=== PATIENT | male | born 1940 | race Caucasian/White ===

== ENCOUNTER → 2017-08-11 | Outpatient (CLI) | payer MEDICARE, BC ==
--- NOTE | 2017-08-12 07:23 | US ---
EXAMINATION TYPE: US kidneys/renal and bladder DATE OF EXAM: 08/11/2017 COMPARISON: NONE CLINICAL HISTORY: N18.9 CHR RENAL DISEASE/FAILURE. EXAM MEASUREMENTS: Right Kidney: 9.3 x 4.2 x 4.2 cm Left Kidney: 10.0 x 5.6 x 4.8 cm Right Kidney: probable cyst seen measuring 0.9 x 1.0 x 0.9cm Left Kidney: No hydronephrosis or masses seen Bladder: not fully distended There is no evidence for hydronephrosis at this point in time. No nephrolithiasis is seen. Technolog ist tran 9 mm round hypoechoic anechoic lesion mid to lower pole level right kidney likely reflectin g simple cyst. The urinary bladder is somewhat poorly distended. Bilateral ureteral jets are not se en. Some cortical thinning bilaterally is present. IMPRESSION: No hydronephrosis is seen bilaterally.
== END | disposition home or self-care (01) ==
LOC: RADUSWWP 16:06
PROVIDERS: ATTEND Urology
DX: N18.9 Chronic kidney disease, unspecified (principal)
CPT/HCPCS: 76770

== ENCOUNTER → 2017-09-30 | Outpatient (CLI) | payer MEDICARE, BC | END | disposition home or self-care (01) | LOC: LABWHC1 08:55 | PROVIDERS: ATTEND Physical Medicine & Rehabilitation | DX: Z01.812 Encounter for preprocedural laboratory examination (principal); N28.9 Disorder of kidney and ureter, unspecified | CPT/HCPCS: 36415; 82565; 84520 ==

== ENCOUNTER → 2017-10-19 | Outpatient (CLI) | payer MEDICARE, BC ==
--- NOTE | 2017-10-19 16:07 | CT ---
EXAMINATION TYPE: CT lumbar spine wo con DATE OF EXAM: 10/19/2017 COMPARISON: NONE HISTORY: Low Back Pain CT DLP: 1067 mGycm Automated exposure control for dose reduction was used. An unenhanced CT of the lumbar spine was performed. Bone and soft tissue window settings are submitt ed as well as coronal and sagittal reconstructions. FINDINGS: Lumbar vertebral bodies show preserved height and alignment. There is loss of disc height L4-5 and L5 -S1 with associated spondylosis as well as vacuum disc phenomenon. Multilevel spondylosis is present. Spondylolysis. Bone mineralization is maintained. Multilevel laminectomies performed through L1-L5. There is no evident spinal stenosis. Surgical clips present in the right upper quadrant. L1-L2: Broad-based posterior disc bulge contacts the anterior thecal sac. No significant foraminal en croachment. There is some facet arthropathy with hypertrophy of ligamentum flavum encroaching on the lateral recesses. L2-L3: Posterior broad-based disc bulge contacts anterior thecal sac. Facet arthropathy with hypertro phy ligamentum flavum encroaches on the lateral recesses causing an hourglass shaped thecal sac. L3-L4: Broad-based posterior disc bulge contacts anterior thecal sac. Circumferential extension encro aches mildly into is neural foramen on the left. Facet arthropathy with fragility ligamentum flavum e ncroaches on the lateral recesses, there is an area of class configuration of the thecal sac. L4-L5: Posterior broad-based disc bulge contacts anterior thecal sac. Circumferential extension disc bulge towards the neural foramina encroaches mildly. Facet arthropathy with hypertrophy of the ligame ntum flavum encroaches on the lateral recesses, R glass configuration thecal sac is noted. L5-S1: Lateral extension endplate disc complex results in bilateral foraminal encroachment. Broad-bas ed intimal posterior disc bulge may contact the anterior thecal sac, possibly proximal left S1 nerve root. IMPRESSION: No paraspinal masses are identified. Postop changes. Multilevel facet arthropathy, foraminal encroach ment. Degenerative disc disease.
== END | disposition home or self-care (01) ==
LOC: RADCTMAIN 07:06
PROVIDERS: ATTEND Physical Medicine & Rehabilitation
DX: M51.16 Intervertebral disc disorders with radiculopathy, lumbar region (principal); M46.96 Unspecified inflammatory spondylopathy, lumbar region; M25.562 Pain in left knee; M25.552 Pain in left hip; Z79.01 Long term (current) use of anticoagulants
CPT/HCPCS: 72131

== ENCOUNTER → 2018-01-06 | Outpatient (CLI) | payer MEDICARE, BC ==
[2018-01-06 10:21] LABS: Appearance,Urine Clear (Clear); Bilirubin,Urine Negative (Negative); Blood,Urine Negative (Negative); Color,Urine Yellow; Glucose,Urine (UA) Negative (Negative); Ketones,Urine Negative (Negative); Leukocyte Esterase,Urine Negative (Negative); Nitrite,Urine Negative (Negative); Protein,Urine Negative (Negative); Specific Gravity,Urine 1.011 (1.001-1.035); Urobilinogen,Urine <2.0 mg/dL (<2.0)
[2018-01-06 10:31] LABS: HCT 38.7 % (39.0-53.0); HGB 13.4 gm/dL (13.0-17.5); MCHC 34.6 g/dL (31.0-37.0); MCV 89.7 fL (80.0-100.0); Mean Platelet Volume 6.4; Platelet Count 212 k/uL (150-450); RBC 4.32 m/uL (4.30-5.90); RDW 13.1 % (11.5-15.5); WBC 5.7 k/uL (3.8-10.6)
[2018-01-06 10:34] LABS: INR 2.4 (<1.2); Partial Thromboplastin Time 35.7 sec (22.0-30.0); Prothrombin Time 21.2 sec (9.0-12.0)
[2018-01-06 10:47] LABS: Albumin 3.8 g/dL (3.5-5.0); Calcium 8.8 mg/dL (8.4-10.2); Potassium 4.4 mmol/L (3.5-5.1); Total Bilirubin 0.6 mg/dL (0.2-1.3); Total Protein 6.8 g/dL (6.3-8.2)
== END | disposition home or self-care (01) ==
LOC: LABPAT 09:29
PROVIDERS: ATTEND Orthopaedic Surgery
DX: Z01.818 Encounter for other preprocedural examination (principal); Z01.812 Encounter for preprocedural laboratory examination
CPT/HCPCS: 36415; 80053; 81003; 85027; 85610; 85730; 86850; 86900; 86901; 87070; 93005

== ENCOUNTER 2018-01-17 06:49 | Inpatient (IN) | payer MEDICARE, BC ==
[2018-01-09 11:32] VITALS: BMI 25.8
[~2018-01-17 06:49] MED LIST: ACETAMINOPHEN TAB 500 MG TAB PO ONE; DEXAMETHASONE SOD PHOSPHATE 10 MG/ML 1 ML VIAL IV ONE; MELOXICAM 7.5 MG TAB PO ONE; MIDAZOLAM 2 MG/2 ML VIAL IV PRN; ONDANSETRON 4 MG/2 ML VIAL IVP ONE; ROPIVACAINE 246.25 MG, EPINEPHrine 0.5 MG, KETOROLAC 30 MG, cloNIDine HCL/PF 80 MCG, WA... MISCELLANE ONE; TRANEXAMIC ACID 1,000 MG in SODIUM CHLORIDE 0.9% 50 ML IVPB ONE; ceFAZolin IN SWFI 2 GM/20 ML SYRINGE IVP ONE; fentaNYL (PF) 50 MCG/ML 2 ML AMP IV PRN
[2018-01-17] MEDS ORDERED: LIDOCAINE 1% 20 ML VIAL (10MG/ML) FOR IV START INTRADERMA ONE (07:26)
[2018-01-17] MEDS: LACTATED RINGERS 1,000 ML IV SCH (07:29)
[2018-01-17 07:44] LABS: INR 1.3 (<1.2); Prothrombin Time 12.1 sec (9.0-12.0)
[2018-01-17] MEDS ORDERED: MIDAZOLAM 2 MG/2 ML VIAL ONE (09:00)
[2018-01-17] MEDS ORDERED: fentaNYL (PF) 50 MCG/ML 2 ML AMP ONE (09:00)
[2018-01-17] MEDS ORDERED: SODIUM CHLORIDE 0.9% 100 ML BAG ONE (09:00)
[2018-01-17] MEDS ORDERED: SODIUM CHLORIDE 0.9% IRRIG 1,000 ML BTL IRRIGATION ONE (09:00)
[2018-01-17] MEDS ORDERED: TRANEXAMIC ACID 1,000 MG/10 ML VIAL ONE (09:00)
[2018-01-17] MEDS ORDERED: HEPARIN SODIUM,PORCINE 10,000 UNIT/ML 1 ML VIAL ONE (09:00)
[2018-01-17] MEDS ORDERED: ePHEDrine SULFATE/0.9% NACL/PF 50 MG/5 ML SYRINGE IV ONE (09:00)
[2018-01-17] MEDS ORDERED: PROPOFOL 10 MG/ML 20 ML VIAL IV ONE (09:00)
[2018-01-17] MEDS ORDERED: diphenhydrAMINE 50 MG/ML 1 ML VIAL ONE (09:00)
[2018-01-17] MEDS ORDERED: HYDROcodone/APAP 5-325MG 1 EACH TAB PO PRN ×2 (09:04)
[2018-01-17] MEDS ORDERED: DIAZEPAM 5 MG TAB PO PRN ×2 (09:04)
[2018-01-17] MEDS ORDERED: hydrOXYzine PAMOATE 25 MG CAP PO PRN (09:04)
[2018-01-17] MEDS ORDERED: MAGNESIUM HYDROXIDE 2,400 MG/10 ML CUP PO PRN (09:04)
[2018-01-17] MEDS ORDERED: NALOXONE 0.4 MG/ML 1 ML VIAL IV PRN (09:04)
[2018-01-17] MEDS ORDERED: ONDANSETRON 4 MG/2 ML VIAL IVP PRN (09:04)
[2018-01-17] MEDS ORDERED: HYDROmorphone 1 MG/ML 1 ML SYRINGE IVP PRN ×3 (09:04)
[2018-01-17] MEDS ORDERED: ceFAZolin 3,000 MG in SODIUM CHLORIDE 0.9% IRRIGATIO 3,000 ML IRRIGATION ONE (09:44)
[2018-01-17] MEDS ORDERED: LACTATED RINGERS 1,000 ML IV ONE (10:16)
--- NOTE | 2018-01-17 10:24 | P.OP ---
Date of Procedure: 01/17/18 Preoperative Diagnosis: Severe osteoarthritis left hip Postoperative Diagnosis: Severe osteoarthritis left hip Procedure(s) Performed: Left total hip arthroplasty the direct anterior approach Implants: Onofre and nephew Polarstem size 5 standard Onofre & Nephew R3, 3 hole acetabular shell, 52 mm Onofre [employer] Nephew reflection 6.5 mm cancellus screw, 20 mm 2 Onofre [employer] Nephew R3, XLPE 20 acetabular liner Onofre & Nephew Oxinium femoral head 36 m, +8 All components were press-fit. The articulation is Oxinium on polyethylene. Anesthesia: spinal Surgeon: Kaleb Gates Gate Guard #1: Heide Schrader Estimated Blood Loss (ml): 150 (60 mL returned with Cell Saver) Pathology: other (Femoral head) Condition: stable Disposition: PACU Indications for Procedure: After failure of conservative treatment we discussed the surgical and nonsurgical treatment options at length. Patient wishes to proceed with a total hip arthroplasty with a direct anterior approach. Complications specific to this procedure were discussed at length, including but not limited to infection, leg length discrepancy, dislocation, and nerve injury. Patient is aware of all these complications and informed consent was obtained Operative Findings: The operative findings are consistent with severe osteoarthritis of the left hip Description of Procedure: Patient was seen and evaluated in the preoperative area, consent was reviewed, and the surgical site was marked with a skin marker. Patient was then brought to the operating room and given prophylactic antibiotics intravenously. 1 g of Tranexamic acid was also given. A spinal anesthetic was administered by the anesthesia department. The patient was then placed on the Gibson table with the bony prominences well-padded. The hip area was then prepped and draped in usual sterile fashion. A universal timeout was then performed, which confirmed the patient's name, surgical site, ALLERGIES, and procedure being performed. Next the incision site was located at 1 cm distal and 1 cm lateral to the anterior superior iliac spine. The skin and subcutaneous tissues were sharply incised. Incision was carefully dissected down to the fascia overlying the tensor fascia juan muscle. This fascia was then incised in line with the incision. Next, using blunt finger dissection, the tensor fascia juan muscle was dissected off its investing fascia. The muscle was then carefully retracted laterally with a cobra retractor over the lateral neck of the femur. Next, the circumflex vessels were identified and cauterized using the AquaMantis device. The anterior hip capsule was then exposed. The capsule was then opened and an inverted T fashion. Cobra retractors were then placed intracapsularly. The proximal femur was then visualized. The femoral neck was then osteotomized appropriate level above the lesser trochanter. Small amount of traction was placed with the Gibson table. A small wedge of bone was then removed from the remaining femoral head. Next, using a corkscrew femoral head was easily removed from the acetabulum. On gross visual inspection, the femoral head had complete loss of articular cartilage in multiple periarticular osteophytes. Attention was then turned to the acetabulum. the acetabulum was exposed and any remaining labrum was excised. Sequential reaming of the acetabulum was performed using fluoroscopic guidance. When the appropriate size was reached, a trial was then placed. The position and fit of the trial was checked with fluoroscopy. The trial was then removed. Then, using fluoroscopic guidance, the final implant was impacted at 20 of anteversion and 40 of abduction, and fully seated in the acetabulum. 2 screws were then placed in the acetabulum. Again fluoroscopy was used to check position of the screws. Next, the liner was then impacted, with a 20 elevated liner located in the anterior superior quadrant. Component locking was confirmed. Attention was then directed to the femur. With the aid of the Gibson table, the femur was externally rotated to approximately 130, extended, and abducted under the opposite leg. A side hook was then placed under the proximal femur, and the side hook elevator was used to elevate the proximal femur. Retractors were then placed. A capsular release was performed, as well as a release of the conjoined tendon, which afforded excellent visualization of the proximal femur. Next, a box osteotome was used to lateralize the proximal femur. A merchandising manager was then used to locate the femoral canal. Sequential broaching was then performed with appropriate size which afforded excellent fixation in the proximal femur. A trial was then placed with appropriate head and neck, and the hip was gently reduced with the aid of the Gibson table. Fluoroscopy was then used to check position of the components, as well as to ensure equal leg lengths. The hip was then gently dislocated and the trials were then removed. Final implants were then impacted and the hip was again reduced. Final fluoroscopic x-rays confirmed that the components were in anatomic position, as well as equal leg lengths. The hip was also taken through range of motion, and found to be stable. The hip was then copiously irrigated with antibiotic solution with pulsatile lavage. The hip was then irrigated with Irrisept solution. The soft tissues were then injected with a ropivacaine solution, which consisted of 246.25 mg of ropivacaine, 0.5 mg of epinephrine, 30 mg of Toradol, 80 g of clonidine, and 48.45 mL of sterile water, for a total of 100 mL of fluid injected. A second dose of 1 g of Tranexamic acid was also given. the fascia was then closed with 2-0 strata fix suture. The subcutaneous tissue was closed with 3-0 Vicryl. The subcuticular tissue was closed with 3-0 strata fix suture. The skin was then closed with Dermabond glue and a sterile silver dressing. The patient was then transferred to the recovery room in stable condition. The specimen preparation assistant GYPSY Evangelista was required due to the complexity of surgery, and the need for skilled seed analysis laboratory assistant for positioning, draping, exposure, retraction, and closure of the wound.
--- NOTE | 2018-01-17 11:33 | XR ---
EXAMINATION TYPE: XR Hip Limited LT DATE OF EXAM: 01/17/2018 COMPARISON: NONE HISTORY: Postop TECHNIQUE: One view submitted. FINDINGS: There is a prosthetic hip in near anatomic alignment. There is soft tissue edema and emphysema. IMPRESSION: 1. Postoperative change. Appears in near-anatomic alignment.
--- NOTE | 2018-01-17 12:30 | FL ---
EXAMINATION TYPE: FL guidance operating room DATE OF EXAM: 01/17/2018 HISTORY: Flouroscopy time 34 seconds of fluoroscopy provided. IMPRESSION: 1. Fluoroscopy time.
--- NOTE | 2018-01-17 14:56 | CONS ---
CONSULTATION DATE OF CONSULTATION: 01/17/2018 REASON FOR CONSULTATION: Medical management requested by Dr. Gates. CONSULTATION: A very pleasant 77-year-old patient of Dr. Rosado. Chronic stable medical conditions include hypertension, hyperlipidemia, osteoarthritis, paroxysmal atrial fibrillation. Patient has undergone a left total hip arthroplasty. Pain is controlled. No nausea, vomiting. Lying in bed. No chest pain, short of breath. Family is present including his . The patient has been in sinus rhythm. REVIEW OF SYSTEMS: CONSTITUTIONAL: None. HEENT: None. RESPIRATORY: None. CARDIOVASCULAR: None. GASTROINTESTINAL: None. GENITOURINARY: None. MUSCULOSKELETAL: Arthritic pain in joints. DERMATOLOGICAL: None. HEMATOLOGIC: None. LYMPHATICS: :None. PSYCHIATRY: None. NEUROLOGICAL: None. PAST MEDICAL HISTORY: Atrial fibrillation, hyperlipidemia, hypertension, osteoarthritis, palpitations. PAST SURGICAL HISTORY: Back surgery, cholecystectomy, hernia repair, low back surgery for blood vessel rupture, bilateral inguinal hernia repair, cardioversion. SOCIAL HISTORY: Marries, no smoking, no alcohol. FAMILY HISTORY: Father of a heart attack at age of 66. HOME MEDICATIONS: 1. Coumadin 3.75 mg on Tuesday, Tuesday, , Tuesday and 2.5 mg Tuesday, Tuesday, Tuesday. 2. Triamterene hydrochlorothiazide 1 tablet p.o. daily. 3. Lopressor 25 p.o. b.i.d. 4. Zestril 20 mg p.o. daily. 5. Neurontin 600 mg p.o. t.i.d., Multaq 400 mg p.o. b.i.d. 6. Lipitor 20 mg q.h.s. ALLERGIES: None. PHYSICAL EXAMINATION: Temperature 97.4, pulse, respiratory 18, blood pressure 107/59, pulse 94% on room air. GENERAL APPEARANCE: Average build, lying in bed, comfortable. EYES: Pupils equal, conjunctivae normal. HEENT: External appearance of nose and ears normal, oral cavity normal. NECK: JVD not raised. Mass not palpable. RESPIRATORY: Effort normal. Lungs are clear. CARDIOVASCULAR: First and second sounds normal. No edema. ABDOMEN: Soft, nontender. Liver and spleen not palpable. LYMPHATIC: No lymph of palpable in neck or axillae. PSYCHIATRY: Alert and oriented x3. Mood and affect normal. NEUROLOGICAL: Pupils equal, grossly intact. Power and sensation grossly intact. MUSCULOSKELETAL: Dressing over the left hip. INVESTIGATIONS: Blood work from 01/16/2018 shows hemoglobin of 13.4, potassium of 4.4, BUN 26, creatinine 1.52. ASSESSMENT: 1. Left total hip arthroplasty. 2. Primary osteoarthritis next is essential hypertension next hyperlipidemia next paroxysmal atrial fibrillation currently in sinus rhythm. 3. Chronic kidney disease stage 3 probably from nephrosclerosis. PLAN: Home medications to be resumed, home dose of Coumadin is to be resumed. Care was discussed with the patient's family at the bedside. Pain control is in place. Questions were answered. Patient should follow up with Dr. Rosado upon discharge. Thank you Dr. Gates. SHERRYL / GEORGEN: [id number] /
[2018-01-17] MEDS: GABAPENTIN 300 MG CAP PO SCH ×2 (15:18→22:28)
[2018-01-17] MEDS: ceFAZolin IN SWFI 2 GM/20 ML SYRINGE IVP SCH ×2 (15:19→23:55)
[2018-01-17] MEDS ORDERED: WARFARIN 5 MG TAB PO ONE (18:00)
[2018-01-17] MEDS: DRONEDARONE 400 MG TAB PO SCH (18:02)
[2018-01-17] MEDS: SODIUM CHLORIDE 0.9% 1,000 ML IV SCH (18:03)
[2018-01-17] MEDS ORDERED: SENNOSIDES-DOCUSATE SODIUM 1 EACH TAB PO SCH (21:00)
[2018-01-17] MEDS ORDERED: ATORVASTATIN 20 MG TAB PO SCH (21:00)
[2018-01-17] MEDS: METOPROLOL TARTRATE 25 MG TAB PO SCH (21:19)
[2018-01-18] MEDS: SODIUM CHLORIDE 0.9% 1,000 ML IV SCH (04:07)
[2018-01-18] MEDS: LACTATED RINGERS 1,000 ML IV SCH (06:13)
[2018-01-18 07:46] VITALS: BP 106/68; PULSE 72; RESP 12; TEMP 98.7
[2018-01-18 07:54] LABS: INR 1.5 (<1.2); Prothrombin Time 13.7 sec (9.0-12.0)
[2018-01-18 08:55] LABS: Basophils % (A) 0 %; Eosinophils % (A) 0 %; HCT 31.7 % (39.0-53.0); HGB 10.9 gm/dL (13.0-17.5); Lymphocytes # (A) 1.5 k/uL (1.0-4.8); Lymphocytes % (A) 14 %; MCH 30.7 pg (25.0-35.0); MCHC 34.4 g/dL (31.0-37.0); MCV 89.1 fL (80.0-100.0); Monocytes % (A) 9 %; Neutrophils # (A) 8.2 k/uL (1.3-7.7); Neutrophils % (A) 76 %; Platelet Count 193 k/uL (150-450); RBC 3.55 m/uL (4.30-5.90); RDW 12.9 % (11.5-15.5); WBC 10.8 k/uL (3.8-10.6)
[2018-01-18] MEDS ORDERED: LISINOPRIL 20 MG TAB PO SCH (09:00)
--- NOTE | 2018-01-18 09:13 | P.DS ---
Providers Date of admission: 01/17/18 06:49 Expected date of discharge: 01/18/18 Attending physician: Kaleb Gates Consults: 01/17/18 09:04 Consult Physician Routine Consulting Provider: Helder Douglas Consult Reason/Comments: medical management and anticoagulation Do you want consulting provider notified?: Yes Primary care physician: Kevin Rosado - Discharge Diagnosis(es) (1) Primary osteoarthritis of left hip Current Visit: Yes Status: Acute (2) Status post total hip replacement, left Current Visit: Yes Status: Acute Hospital Course: This is a 77-year-old male with known history of degenerative arthritis of the left hip. The patient presents for evaluation. After discussion and consideration patient elects to proceed with total hip arthroplasty. The patient is seen preoperatively by Dr. Gates and medically cleared for surgery by their primary care physician. Patient is admitted to [facility] on 01/17/2018 for total hip arthroplasty. The procedures performed without complication or sequelae. The patient is doing well postoperatively. Labs and vital signs are stable on day of discharge. On day of discharge patient's hip incision is healing well. There is minimal erythema. There is no drainage noted at this time. There is minimal soft tissue swelling to the hip and thigh. Patient has full foot and ankle motion without difficulty or pain. Neurovascular status to the left lower extremity is intact. Patient is discharged home in good condition. Please see med rec for accurate list of home medications. Plan - Discharge Summary Discharge Rx Participant: Yes New Discharge Prescriptions: New HYDROcodone/APAP 5-325MG [[place] 5-325] 1 - 2 tab PO Q4-6H PRN #45 tab PRN Reason: Pain Sennosides [Senokot] 1 tab PO BID #60 tablet No Action Warfarin [Coumadin] 2.5 mg PO MOWEFR Warfarin [Coumadin] 3.75 mg PO SUTUTHSA Atorvastatin [Lipitor] 20 mg PO HS Dronedarone [Multaq] 400 mg PO AC-BID #60 tab Metoprolol Tartrate [Lopressor] 25 mg PO BID #60 tab Lisinopril [Zestril] 20 mg PO DAILY Gabapentin [Neurontin] 600 mg PO TID Triamterene/Hydrochlorothiazid [Triamterene-Hctz 37.5-25 mg Tb] 1 tab PO DAILY Discharge Medication List Atorvastatin [Lipitor] 20 mg PO HS 11/14/16 [History] Warfarin [Coumadin] 2.5 mg PO MOWEFR 03/08/16 [History] Warfarin [Coumadin] 3.75 mg PO SUTUTHSA 03/08/16 [History] Dronedarone [Multaq] 400 mg PO AC-BID #60 tab 03/10/16 [Rx] Metoprolol Tartrate [Lopressor] 25 mg PO BID #60 tab 03/10/16 [Rx] Gabapentin [Neurontin] 600 mg PO TID 01/09/18 [History] Lisinopril [Zestril] 20 mg PO DAILY 01/09/18 [History] Triamterene/Hydrochlorothiazid [Triamterene-Hctz 37.5-25 mg Tb] 1 tab PO DAILY 01/09/18 [History] HYDROcodone/APAP 5-325MG [[place] 5-325] 1 - 2 tab PO Q4-6H PRN #45 tab 01/18/18 [ Rx] Sennosides [Senokot] 1 tab PO BID #60 tablet 01/18/18 [Rx] Follow up Appointment(s)/Referral(s): Kaleb Gates DO [Doctor of Osteopathic Medicine] - 2 Weeks Activity/Diet/Wound Care/Special Instructions: Weightbearing as tolerated with walker Leave dressing intact. Dressing may be removed by home care nurse in 10 days. May shower with dressing on. Follow-up with [facility] in 2 weeks, please call with any questions or concerns [phone] Discharge Disposition: HOME WITH HOME HEALTH SERVICES
[2018-01-18] MEDS: METOPROLOL TARTRATE 25 MG TAB PO SCH (10:01)
[2018-01-18] MEDS: GABAPENTIN 300 MG CAP PO SCH (10:01)
[2018-01-18] MEDS: DRONEDARONE 400 MG TAB PO SCH (10:01)
[2018-01-18] MEDS ORDERED: WARFARIN 5 MG TAB PO ONE (18:00)
--- NOTE | 2018-01-19 04:59 | PN ---
PROGRESS NOTE DATE OF SERVICE: 01/18/2018 PRESENTING COMPLAINT: Left hip surgery. INTERVAL HISTORY: Patient is status post left hip surgery. Pain is controlled. No nausea or vomiting. Did tolerate a diet. Did work with therapy. No new issues. REVIEW OF SYSTEMS: Review of systems done for constitutional, cardiovascular, GI, pulmonary, musculoskeletal; relevant findings as above. CURRENT MEDICATIONS: Current medications are reviewed. PHYSICAL EXAMINATION: On examination, temperature 98.7, pulse 72, respiratory 12, blood pressure 106/68 pulse ox 94% on room air. GENERAL APPEARANCE: Sitting up on a chair, comfortable. EYES: Pupils equal. Conjunctivae normal. HENT: External appearance of nose and ears normal. Oral cavity normal. NECK: JVD not raised. Mass not palpable. RESPIRATORY: Effort normal. Lungs are clear. CARDIOVASCULAR: First and second sounds normal. No edema. ABDOMEN: Soft, nontender. Liver and spleen not palpable. PSYCHIATRY: Alert and oriented x3. Mood and affect normal. INVESTIGATIONS: White count 10.8, hemoglobin 10.9. ASSESSMENT: 1. Left total hip arthroplasty. 2. Primary osteoarthritis. 3. Essential hypertension. 4. Hyperlipidemia. 5. Paroxysmal atrial fibrillation, currently in sinus rhythm. 6. Chronic kidney disease, stage 3, probably from nephrosclerosis. PLAN: Continue current medication and treatment plan. Patient is doing medically well. Patient to continue with Coumadin. Discussed with the to get the INR checked on next coming Tuesday. MMAMEEL / GEORGEN: [id number] /
[2018-01-19] MEDS ORDERED: WARFARIN 2.5 MG TAB PO SCH (18:00)
[2018-01-20] MEDS ORDERED: WARFARIN 2.5 MG TAB PO SCH (18:00)
== END 2018-01-18 13:32 | disposition home health service (06) | DRG 470 ==
LOC: 2ORMAIN 06:49 → 3SUR 10:38
PROVIDERS: ADMIT Orthopaedic Surgery; ATTEND Orthopaedic Surgery
PROC: 0SRB06A Replacement of Left Hip Joint with Oxidized Zirconium on Polyethylene Synthetic Substitute, Uncemented, Open Approach (ICD-10-PCS; principal; 2018-01-17 08:45)
DX: M16.12 Unilateral primary osteoarthritis, left hip (principal); E78.5 Hyperlipidemia, unspecified; I12.9 Hypertensive chronic kidney disease with stage 1 through stage 4 chronic kidney disease, or unspecified chronic kidney disease; I48.0 Paroxysmal atrial fibrillation; N18.3 Chronic kidney disease, stage 3 (moderate); Z82.49 Family history of ischemic heart disease and other diseases of the circulatory system; Z79.01 Long term (current) use of anticoagulants; Z79.899 Other long term (current) drug therapy
CPT/HCPCS: 73501; 85025; 85610; 85730; 86850; 86891; 86900; 86901; 88300

== ENCOUNTER → 2018-02-13 | Outpatient (CLI) | payer MEDICARE, BC ==
[2018-02-13 12:59] LABS: INR 3.7 (<1.2); Prothrombin Time 33.5 sec (9.0-12.0)
== END | disposition home or self-care (01) ==
LOC: LABWHC1 11:50
PROVIDERS: ATTEND Nurse Practitioner Adult Health
DX: I48.0 Paroxysmal atrial fibrillation (principal)
CPT/HCPCS: 36415; 85610

== ENCOUNTER → 2019-05-02 | Outpatient (CLI) | payer MEDICARE, BC ==
--- NOTE | 2019-05-02 16:42 | US ---
EXAMINATION TYPE: US kidneys/renal and bladder DATE OF EXAM: 05/02/2019 COMPARISON: 08/11/2017 CLINICAL HISTORY: N18.3 chronic kidney disease stage 3. abn labs EXAM MEASUREMENTS: Right Kidney: 8.6 x 4.3 x 4.2 cm Left Kidney: 10.2 x 4.4 x 6.0 cm Right Kidney: lower pole cystic appearing lesion in renal sinus = 0.8 x 0.9 x 0.8 cm This was prese nt previously and stable. Left Kidney: No hydronephrosis or masses seen Bladder: mildly distended, anechoic Bilateral Jets not seen IMPRESSION: 1. Small peripelvic cyst or renal cyst within the inferior right renal sinus.
== END | disposition home or self-care (01) ==
LOC: RADUSWWP 07:33
PROVIDERS: ATTEND Family Medicine
DX: N18.3 Chronic kidney disease, stage 3 (moderate) (principal)
CPT/HCPCS: 76770

== ENCOUNTER → 2019-05-15 | Outpatient (CLI) | payer MEDICARE, BC ==
[2019-05-15 12:21] LABS: Basophils % (A) 0 %; Eosinophils # (A) 0.1 k/uL (0-0.7); Eosinophils % (A) 2 %; HCT 39.3 % (39.0-53.0); HGB 13.2 gm/dL (13.0-17.5); Lymphocytes # (A) 1.6 k/uL (1.0-4.8); Lymphocytes % (A) 25 %; MCH 30.4 pg (25.0-35.0); MCHC 33.6 g/dL (31.0-37.0); MCV 90.5 fL (80.0-100.0); Mean Platelet Volume 6.8; Monocytes # (A) 0.5 k/uL (0-1.0); Monocytes % (A) 7 %; Neutrophils # (A) 4.2 k/uL (1.3-7.7); Neutrophils % (A) 64 %; Platelet Count 245 k/uL (150-450); RBC 4.34 m/uL (4.30-5.90); RDW 12.7 % (11.5-15.5); WBC 6.7 k/uL (3.8-10.6)
[2019-05-15 20:26] LABS: Phosphorus 3.4 mg/dL (2.4-5.1); Uric Acid 8.8 mg/dL (3.7-8.7)
[2019-05-16 17:15] LABS: African American GFR (CKD) 47.8 (60.0-200.0); Anion Gap 14.6 mmol/L (4.00-12.00); BUN/Creat Ratio 17.5 Ratio (12.00-20.00); Carbon Dioxide 20.4 mmol/L (21.6-31.8); Non-African American GFR(CKD) 41.2 (60.0-200.0); Potassium 4.4 mmol/L (3.5-5.5)
== END | disposition home or self-care (01) ==
LOC: LABWHC1 11:33
PROVIDERS: ATTEND Family Medicine
DX: N18.3 Chronic kidney disease, stage 3 (moderate) (principal)
CPT/HCPCS: 36415; 80048; 82306; 83970; 84100; 84550; 85025

== ENCOUNTER → 2019-06-08 | Outpatient (CLI) | payer MEDICARE, BC ==
[2019-06-08 13:20] LABS: Basophils % (A) 1 %; Eosinophils # (A) 0.1 k/uL (0-0.7); Eosinophils % (A) 2 %; HGB 13.1 gm/dL (13.0-17.5); Lymphocytes # (A) 1.7 k/uL (1.0-4.8); Lymphocytes % (A) 26 %; MCH 29.9 pg (25.0-35.0); MCHC 32.7 g/dL (31.0-37.0); MCV 91.6 fL (80.0-100.0); Mean Platelet Volume 7.1; Monocytes # (A) 0.5 k/uL (0-1.0); Monocytes % (A) 8 %; Neutrophils # (A) 4.1 k/uL (1.3-7.7); Neutrophils % (A) 62 %; Platelet Count 201 k/uL (150-450); RBC 4.37 m/uL (4.30-5.90); WBC 6.7 k/uL (3.8-10.6)
[2019-06-08 13:22] LABS: Appearance,Urine Clear (Clear); Bilirubin,Urine Negative (Negative); Blood,Urine Small (Negative); Color,Urine Yellow; Glucose,Urine (UA) Negative (Negative); Hyaline Casts,Urine 1 /lpf (0-2); Ketones,Urine Negative (Negative); Leukocyte Esterase,Urine Negative (Negative); Mucus,Urine Rare /hpf; Nitrite,Urine Negative (Negative); Protein,Urine Negative (Negative); RBC,Urine 10 /hpf (0-5); Specific Gravity,Urine 1.012 (1.001-1.035); Urobilinogen,Urine <2.0 mg/dL (<2.0); WBC,Urine <1 /hpf (0-5)
[2019-06-08 13:43] LABS: Protein/Creatinine Ratio,Urine 0.059
[2019-06-08 18:26] LABS: % Iron Saturation 28.29 (15.00-50.00); African American GFR (CKD) 47.5 (60.0-200.0); Albumin 4.1 g/dL (3.80-4.90); Anion Gap 4.9 mmol/L (4.00-12.00); BUN/Creat Ratio 10.63 Ratio (12.00-20.00); Calcium 8.8 mg/dL (8.7-10.3); Carbon Dioxide 30.1 mmol/L (21.6-31.8); Magnesium 1.9 mg/dL (1.5-2.4); Non-African American GFR(CKD) 40.9 (60.0-200.0); Phosphorus 3.9 mg/dL (2.4-5.1); Potassium 4.1 mmol/L (3.5-5.5); Uric Acid 7.8 mg/dL (3.7-8.7)
[2019-06-08 18:36] LABS: Ferritin 46.1 ng/mL (22.0-322.0)
[2019-06-11 12:11] LABS: Protein, Total 6.3 g/dL (6.2-8.2)
[2019-06-11 14:16] LABS: Albumin 3.7 g/dL (3.80-4.90); Gamma Globulin 0.9 g/dL (0.70-1.50)
== END | disposition home or self-care (01) ==
LOC: LABWHC1 12:53
PROVIDERS: ATTEND Internal Medicine Nephrology
DX: E55.9 Vitamin D deficiency, unspecified (principal); N25.81 Secondary hyperparathyroidism of renal origin; M10.9 Gout, unspecified; N39.0 Urinary tract infection, site not specified; D64.9 Anemia, unspecified; N18.3 Chronic kidney disease, stage 3 (moderate); R80.9 Proteinuria, unspecified
CPT/HCPCS: 36415; 80048; 81001; 82040; 82306; 82570; 82728; 83540; 83550; 83735; 83970; 84100; 84156; 84165; 84550; 85025; 86335

== ENCOUNTER → 2019-07-16 | Outpatient (CLI) | payer MEDICARE, BC ==
[2019-07-16 11:45] LABS: Appearance,Urine Clear (Clear); Bilirubin,Urine Negative (Negative); Blood,Urine Negative (Negative); Color,Urine Yellow; Glucose,Urine (UA) Negative (Negative); Ketones,Urine Negative (Negative); Leukocyte Esterase,Urine Negative (Negative); Nitrite,Urine Negative (Negative); Protein,Urine Negative (Negative); Urobilinogen,Urine <2.0 mg/dL (<2.0)
[2019-07-16 11:46] LABS: Basophils % (A) 0 %; Eosinophils # (A) 0.1 k/uL (0-0.7); Eosinophils % (A) 1 %; HCT 42.9 % (39.0-53.0); HGB 14.7 gm/dL (13.0-17.5); Lymphocytes # (A) 2.2 k/uL (1.0-4.8); Lymphocytes % (A) 24 %; MCH 30.6 pg (25.0-35.0); MCHC 34.2 g/dL (31.0-37.0); MCV 89.4 fL (80.0-100.0); Mean Platelet Volume 6.9; Monocytes # (A) 0.7 k/uL (0-1.0); Monocytes % (A) 7 %; Neutrophils % (A) 65 %; Platelet Count 249 k/uL (150-450); RDW 12.3 % (11.5-15.5); WBC 9.2 k/uL (3.8-10.6)
[2019-07-16 12:11] LABS: Protein/Creatinine Ratio,Urine 0.037
[2019-07-16 16:58] LABS: % Iron Saturation 28.57 (15.00-50.00); African American GFR (CKD) 38.6 (60.0-200.0); Albumin 4.6 g/dL (3.80-4.90); Anion Gap 10.3 mmol/L (4.00-12.00); BUN/Creat Ratio 19.47 Ratio (12.00-20.00); Calcium 9.4 mg/dL (8.7-10.3); Carbon Dioxide 25.7 mmol/L (21.6-31.8); Magnesium 2.3 mg/dL (1.5-2.4); Non-African American GFR(CKD) 33.3 (60.0-200.0); Phosphorus 3.3 mg/dL (2.4-5.1); Potassium 4.4 mmol/L (3.5-5.5); Uric Acid 10.2 mg/dL (3.7-8.7)
[2019-07-16 17:06] LABS: Ferritin 69.7 ng/mL (22.0-322.0)
== END | disposition home or self-care (01) ==
LOC: LABWHC1 11:00
PROVIDERS: ATTEND Internal Medicine Nephrology
DX: N25.81 Secondary hyperparathyroidism of renal origin (principal); M10.9 Gout, unspecified; N39.0 Urinary tract infection, site not specified; D63.1 Anemia in chronic kidney disease; N18.3 Chronic kidney disease, stage 3 (moderate)
CPT/HCPCS: 36415; 80048; 81003; 82040; 82570; 82728; 83540; 83550; 83735; 83970; 84100; 84156; 84550; 85025

== ENCOUNTER → 2019-09-07 | Outpatient (CLI) | payer MEDICARE, BC ==
[2019-09-07 12:06] LABS: Basophils % (A) 0 %; Eosinophils # (A) 0.2 k/uL (0-0.7); Eosinophils % (A) 2 %; HCT 42.4 % (39.0-53.0); HGB 13.9 gm/dL (13.0-17.5); Lymphocytes # (A) 1.7 k/uL (1.0-4.8); Lymphocytes % (A) 24 %; MCHC 32.7 g/dL (31.0-37.0); MCV 91.9 fL (80.0-100.0); Monocytes # (A) 0.6 k/uL (0-1.0); Monocytes % (A) 8 %; Neutrophils # (A) 4.6 k/uL (1.3-7.7); Neutrophils % (A) 63 %; Platelet Count 230 k/uL (150-450); RBC 4.61 m/uL (4.30-5.90); WBC 7.3 k/uL (3.8-10.6)
[2019-09-07 12:10] LABS: Appearance,Urine Clear (Clear); Bilirubin,Urine Negative (Negative); Blood,Urine Negative (Negative); Color,Urine Yellow; Glucose,Urine (UA) Negative (Negative); Ketones,Urine Negative (Negative); Leukocyte Esterase,Urine Negative (Negative); Nitrite,Urine Negative (Negative); PH, Urine 5.5 (5.0-8.0); Protein,Urine Negative (Negative); Specific Gravity,Urine 1.014 (1.001-1.035); Urobilinogen,Urine <2.0 mg/dL (<2.0)
[2019-09-07 15:57] LABS: % Iron Saturation 35.47 (15.00-50.00); African American GFR (CKD) 41.2 (60.0-200.0); Albumin 4.3 g/dL (3.80-4.90); Albumin/Globulin Ratio 1.79 (1.60-3.17); Anion Gap 9.6 mmol/L (4.00-12.00); BUN/Creat Ratio 14.44 Ratio (12.00-20.00); Calcium 9.5 mg/dL (8.7-10.3); Carbon Dioxide 28.4 mmol/L (21.6-31.8); Globulin 2.4 g/dL (1.6-3.3); Magnesium 2.2 mg/dL (1.5-2.4); Non-African American GFR(CKD) 35.5 (60.0-200.0); Phosphorus 3.3 mg/dL (2.4-5.1); Potassium 4.7 mmol/L (3.5-5.5); Total Bilirubin 0.8 mg/dL (0.3-1.2); Total Protein 6.7 g/dL (6.2-8.2); Uric Acid 7.6 mg/dL (3.7-8.7)
[2019-09-07 16:06] LABS: Ferritin 73.8 ng/mL (22.0-322.0)
== END | disposition home or self-care (01) ==
LOC: LABWHC1 10:50
PROVIDERS: ATTEND Nurse Practitioner Family
DX: N18.3 Chronic kidney disease, stage 3 (moderate) (principal); D63.1 Anemia in chronic kidney disease; N39.0 Urinary tract infection, site not specified; N25.81 Secondary hyperparathyroidism of renal origin; E55.9 Vitamin D deficiency, unspecified; M10.9 Gout, unspecified
CPT/HCPCS: 36415; 80053; 81003; 82306; 82728; 83540; 83550; 83735; 83970; 84100; 84550; 85025

== ENCOUNTER → 2020-01-15 | Outpatient (CLI) | payer MEDICARE, BC ==
[2020-01-15 20:00] LABS: African American GFR (CKD) 51.3 (60.0-200.0); Anion Gap 11.2 mmol/L (4.00-12.00); BUN/Creat Ratio 11.33 Ratio (12.00-20.00); Calcium 8.8 mg/dL (8.7-10.3); Carbon Dioxide 23.8 mmol/L (21.6-31.8); Non-African American GFR(CKD) 44.3 (60.0-200.0); Potassium 4.3 mmol/L (3.5-5.5)
== END | disposition home or self-care (01) ==
LOC: LABWHC1 09:06
PROVIDERS: ATTEND Internal Medicine Nephrology
DX: N18.3 Chronic kidney disease, stage 3 (moderate) (principal)
CPT/HCPCS: 36415; 80048

== ENCOUNTER → 2020-03-24 | Outpatient (CLI) | payer MEDICARE, BC ==
[2020-03-24 11:31] LABS: Basophils % (A) 1 %; Eosinophils # (A) 0.1 k/uL (0-0.7); Eosinophils % (A) 2 %; HGB 13.9 gm/dL (13.0-17.5); Lymphocytes # (A) 1.5 k/uL (1.0-4.8); Lymphocytes % (A) 25 %; MCH 30.5 pg (25.0-35.0); MCV 89.9 fL (80.0-100.0); Mean Platelet Volume 6.8; Monocytes # (A) 0.5 k/uL (0-1.0); Monocytes % (A) 8 %; Neutrophils # (A) 3.9 k/uL (1.3-7.7); Neutrophils % (A) 63 %; Platelet Count 199 k/uL (150-450); RBC 4.56 m/uL (4.30-5.90); RDW 12.2 % (11.5-15.5); WBC 6.2 k/uL (3.8-10.6)
[2020-03-24 11:39] LABS: Appearance,Urine Clear (Clear); Bilirubin,Urine Negative (Negative); Blood,Urine Negative (Negative); Color,Urine Yellow; Glucose,Urine (UA) Negative (Negative); Ketones,Urine Negative (Negative); Leukocyte Esterase,Urine Negative (Negative); Nitrite,Urine Negative (Negative); Protein,Urine Negative (Negative); Urobilinogen,Urine <2.0 mg/dL (<2.0)
[2020-03-24 15:52] LABS: % Iron Saturation 23.55 (15.00-50.00); African American GFR (CKD) 51.3 (60.0-200.0); Albumin 4.1 g/dL (3.80-4.90); Anion Gap 5.5 mmol/L (4.00-12.00); BUN/Creat Ratio 10.67 Ratio (12.00-20.00); Calcium 9.2 mg/dL (8.7-10.3); Carbon Dioxide 25.5 mmol/L (21.6-31.8); Magnesium 2.1 mg/dL (1.5-2.4); Non-African American GFR(CKD) 44.3 (60.0-200.0); Phosphorus 3.6 mg/dL (2.4-5.1); Potassium 4.4 mmol/L (3.5-5.5); Uric Acid 7.2 mg/dL (3.7-8.7)
[2020-03-24 16:00] LABS: Ferritin 46.6 ng/mL (22.0-322.0)
[2020-03-24 20:41] LABS: Creatinine,Urine Random 201.6 mg/dL; Total Protein,Urine Random 10.5 mg/dL (0.0-13.5)
== END | disposition home or self-care (01) ==
LOC: LABWHC1 10:45
PROVIDERS: ATTEND Internal Medicine Nephrology
DX: E55.9 Vitamin D deficiency, unspecified (principal); N18.30 Chronic kidney disease, stage 3 unspecified; N25.81 Secondary hyperparathyroidism of renal origin; M10.9 Gout, unspecified; N39.0 Urinary tract infection, site not specified; D64.1 Secondary sideroblastic anemia due to disease; R80.9 Proteinuria, unspecified
CPT/HCPCS: 36415; 80048; 81003; 82040; 82306; 82570; 82728; 83540; 83550; 83735; 83970; 84100; 84156; 84550; 85025

== ENCOUNTER → 2020-06-24 | Outpatient (CLI) | payer MEDICARE, BC ==
[2020-06-24 12:11] LABS: Appearance,Urine Clear (Clear); Basophils % (A) 1 %; Bilirubin,Urine Negative (Negative); Blood,Urine Negative (Negative); Color,Urine Yellow; Eosinophils # (A) 0.1 k/uL (0-0.7); Eosinophils % (A) 2 %; Glucose,Urine (UA) Negative (Negative); HCT 41.7 % (39.0-53.0); HGB 14.4 gm/dL (13.0-17.5); Ketones,Urine Negative (Negative); Leukocyte Esterase,Urine Negative (Negative); Lymphocytes # (A) 1.4 k/uL (1.0-4.8); Lymphocytes % (A) 24 %; MCH 31.1 pg (25.0-35.0); MCHC 34.5 g/dL (31.0-37.0); Mean Platelet Volume 6.7; Monocytes # (A) 0.4 k/uL (0-1.0); Monocytes % (A) 6 %; Neutrophils # (A) 3.8 k/uL (1.3-7.7); Neutrophils % (A) 66 %; Nitrite,Urine Negative (Negative); PH, Urine 5.5 (5.0-8.0); Platelet Count 198 k/uL (150-450); Protein,Urine Trace (Negative); RBC 4.64 m/uL (4.30-5.90); RDW 12.9 % (11.5-15.5); Specific Gravity,Urine 1.022 (1.001-1.035); Urobilinogen,Urine <2.0 mg/dL (<2.0); WBC 5.8 k/uL (3.8-10.6)
[2020-06-24 12:15] LABS: Albumin 3.8 g/dL (3.5-5.0); Magnesium 2.2 mg/dL (1.6-2.3); Phosphorus 3.5 mg/dL (2.5-4.5); Potassium 4.5 mmol/L (3.5-5.1); Uric Acid 6.7 mg/dL (3.5-8.5)
[2020-06-24 12:22] LABS: Creatinine,Urine Random 224.6 mg/dL; Protein/Creatinine Ratio,Urine 0.027
[2020-06-24 23:51] LABS: % Iron Saturation 27.44 (15.00-50.00)
== END | disposition home or self-care (01) ==
LOC: EC 10:30
PROVIDERS: ATTEND Nurse Practitioner Family
DX: N25.81 Secondary hyperparathyroidism of renal origin (principal); N39.0 Urinary tract infection, site not specified; E55.9 Vitamin D deficiency, unspecified; D64.9 Anemia, unspecified; M10.9 Gout, unspecified; R80.9 Proteinuria, unspecified
CPT/HCPCS: 36415; 80048; 81003; 82040; 82306; 82570; 82728; 83540; 83550; 83735; 83970; 84100; 84156; 84550; 85025

== ENCOUNTER → 2020-09-30 | Outpatient (CLI) | payer MEDICARE, BC ==
[2020-09-30 14:41] LABS: Creatinine,Urine Random 271.8 mg/dL; Protein/Creatinine Ratio,Urine 0.026
[2020-09-30 14:56] LABS: Appearance,Urine Clear (Clear); Bilirubin,Urine Negative (Negative); Blood,Urine Trace (Negative); Color,Urine Yellow; Glucose,Urine (UA) Negative (Negative); Ketones,Urine Negative (Negative); Leukocyte Esterase,Urine Negative (Negative); Mucus,Urine Occasional /hpf; Nitrite,Urine Negative (Negative); PH, Urine 5.5 (5.0-8.0); Protein,Urine Trace (Negative); RBC,Urine 1 /hpf (0-5); Specific Gravity,Urine 1.026 (1.001-1.035); Squamous Epithelial Cell,Urine 1 /hpf (0-4); Urobilinogen,Urine <2.0 mg/dL (<2.0); WBC,Urine 3 /hpf (0-5)
[2020-09-30 19:17] LABS: Basophils # (A) 0.02 X 10*3/uL (0.00-0.10); Basophils % (A) 0.3 %; Eosinophils # (A) 0.08 X 10*3/uL (0.04-0.35); Eosinophils % (A) 1.2 %; HCT 38.9 % (39.6-50.0); HGB 13.1 g/dL (13.0-17.0); Lymphocytes # (A) 1.55 X 10*3/uL (0.90-5.00); Lymphocytes % (A) 22.6 %; MCH 30.9 pg (27.0-32.0); MCHC 33.7 g/dL (32.0-37.0); MCV 91.7 fL (80.0-97.0); Monocytes # (A) 0.67 X 10*3/uL (0.20-1.00); Monocytes % (A) 9.8 %; Neutrophils # (A) 4.52 X 10*3/uL (1.80-7.70); Neutrophils % (A) 65.8 %; Platelet Count 216 X 10*3/uL (140-440); RBC 4.24 X 10*6/uL (4.40-5.60); WBC 6.86 X 10*3/uL (4.50-10.00)
[2020-09-30 22:54] LABS: % Iron Saturation 15.79 (15.00-50.00); African American GFR (CKD) 43.8 (60.0-200.0); Albumin 4.1 g/dL (3.80-4.90); BUN/Creat Ratio 14.71 Ratio (12.00-20.00); Calcium 9.4 mg/dL (8.7-10.3); Magnesium 1.8 mg/dL (1.5-2.4); Non-African American GFR(CKD) 37.8 (60.0-200.0); Phosphorus 3.9 mg/dL (2.4-5.1); Potassium 4.2 mmol/L (3.5-5.5); Uric Acid 7.7 mg/dL (3.7-8.7)
== END | disposition home or self-care (01) ==
LOC: LABWHC1 13:46
PROVIDERS: ATTEND Nurse Practitioner Family
DX: N39.0 Urinary tract infection, site not specified (principal); N18.32 Chronic kidney disease, stage 3b; N25.81 Secondary hyperparathyroidism of renal origin; D64.9 Anemia, unspecified; E55.9 Vitamin D deficiency, unspecified; M10.9 Gout, unspecified; R80.9 Proteinuria, unspecified
CPT/HCPCS: 36415; 80048; 81001; 82040; 82306; 82570; 82728; 83540; 83550; 83735; 83970; 84100; 84156; 84550; 85025

== ENCOUNTER → 2020-10-29 | Outpatient (CLI) | payer MEDICARE, BC ==
[2020-10-29 09:23] LABS: Appearance,Urine Clear (Clear); Bilirubin,Urine Negative (Negative); Blood,Urine Trace (Negative); Color,Urine Yellow; Glucose,Urine (UA) Negative (Negative); Hyaline Casts,Urine 1 /lpf (0-2); Ketones,Urine Negative (Negative); Leukocyte Esterase,Urine Negative (Negative); Nitrite,Urine Negative (Negative); PH, Urine 5.5 (5.0-8.0); Protein,Urine Negative (Negative); RBC,Urine 2 /hpf (0-5); Specific Gravity,Urine 1.015 (1.001-1.035); Urobilinogen,Urine <2.0 mg/dL (<2.0); WBC,Urine <1 /hpf (0-5)
[2020-10-29 09:43] LABS: Creatinine,Urine Random 135.2 mg/dL; Protein/Creatinine Ratio,Urine 0.052
[2020-10-29 12:10] LABS: Basophils # (A) 0.03 X 10*3/uL (0.00-0.10); Basophils % (A) 0.4 %; Eosinophils # (A) 0.12 X 10*3/uL (0.04-0.35); Eosinophils % (A) 1.7 %; HCT 42.9 % (39.6-50.0); Lymphocytes # (A) 1.47 X 10*3/uL (0.90-5.00); Lymphocytes % (A) 21.1 %; MCHC 32.6 g/dL (32.0-37.0); MCV 91.9 fL (80.0-97.0); Mean Platelet Volume 9.9 fL (9.5-12.2); Monocytes % (A) 7.2 %; Neutrophils # (A) 4.83 X 10*3/uL (1.80-7.70); Neutrophils % (A) 69.3 %; Platelet Count 191 X 10*3/uL (140-440); RBC 4.67 X 10*6/uL (4.40-5.60); RDW 12.6 % (11.5-14.5); WBC 6.97 X 10*3/uL (4.50-10.00)
[2020-10-29 14:26] LABS: % Iron Saturation 32.39 (15.00-50.00); African American GFR (CKD) 43.8 (60.0-200.0); Anion Gap 8.8 mmol/L (4.00-12.00); BUN/Creat Ratio 11.76 Ratio (12.00-20.00); Calcium 8.5 mg/dL (8.7-10.3); Carbon Dioxide 25.2 mmol/L (21.6-31.8); Ferritin 37.5 ng/mL (22.0-322.0); Magnesium 1.8 mg/dL (1.5-2.4); Non-African American GFR(CKD) 37.8 (60.0-200.0); Phosphorus 2.7 mg/dL (2.4-5.1); Potassium 4.1 mmol/L (3.5-5.5)
== END | disposition home or self-care (01) ==
LOC: LABWHC1 08:02
DX: N25.81 Secondary hyperparathyroidism of renal origin (principal); N18.32 Chronic kidney disease, stage 3b; M10.9 Gout, unspecified; N39.0 Urinary tract infection, site not specified; D64.9 Anemia, unspecified; R80.9 Proteinuria, unspecified
CPT/HCPCS: 36415; 80048; 81001; 82040; 82306; 82570; 82728; 83540; 83550; 83735; 83970; 84100; 84156; 84550; 85025

== ENCOUNTER → 2021-01-27 | Outpatient (CLI) | payer MEDICARE, BC ==
[2021-01-27 15:22] LABS: Appearance,Urine Clear (Clear); Bilirubin,Urine Negative (Negative); Blood,Urine Trace (Negative); Color,Urine Light Yellow; Glucose,Urine (UA) Negative (Negative); Hyaline Casts,Urine 8 /lpf (0-2); Ketones,Urine Negative (Negative); Leukocyte Esterase,Urine Negative (Negative); Nitrite,Urine Negative (Negative); Protein,Urine Negative (Negative); RBC,Urine 1 /hpf (0-5); Specific Gravity,Urine 1.009 (1.001-1.035); Urobilinogen,Urine <2.0 mg/dL (<2.0)
[2021-01-27 15:35] LABS: Protein/Creatinine Ratio,Urine 0.158
[2021-01-27 23:47] LABS: Basophils # (A) 0.04 X 10*3/uL (0.00-0.10); Basophils % (A) 0.6 %; Eosinophils # (A) 0.11 X 10*3/uL (0.04-0.35); Eosinophils % (A) 1.6 %; HCT 41.9 % (39.6-50.0); Lymphocytes # (A) 1.81 X 10*3/uL (0.90-5.00); Lymphocytes % (A) 26.7 %; MCH 30.3 pg (27.0-32.0); MCHC 33.4 g/dL (32.0-37.0); MCV 90.7 fL (80.0-97.0); Monocytes # (A) 0.59 X 10*3/uL (0.20-1.00); Monocytes % (A) 8.7 %; Neutrophils # (A) 4.22 X 10*3/uL (1.80-7.70); Neutrophils % (A) 62.1 %; Platelet Count 214 X 10*3/uL (140-440); RBC 4.62 X 10*6/uL (4.40-5.60); RDW 13.1 % (11.5-14.5); WBC 6.79 X 10*3/uL (4.50-10.00)
[2021-01-28 15:27] LABS: % Iron Saturation 21.08 (15.00-50.00); African American GFR (CKD) 50.9 (60.0-200.0); Albumin 4.1 g/dL (3.8-4.9); Anion Gap 16.4 mmol/L (4.00-12.00); BUN/Creat Ratio 12.27 Ratio (12.00-20.00); Blood Urea Nitrogen 18.4 mg/dL (9.0-27.0); Calcium 8.9 mg/dL (8.7-10.3); Carbon Dioxide 19.6 mmol/L (21.6-31.8); Ferritin 63.2 ng/mL (22.0-322.0); Phosphorus 3.3 mg/dL (2.4-5.1); Potassium 4.2 mmol/L (3.5-5.5); Uric Acid 6.6 mg/dL (3.7-8.7)
== END | disposition home or self-care (01) ==
LOC: LABWHC1 12:46
PROVIDERS: ATTEND Internal Medicine Nephrology
DX: E83.39 Other disorders of phosphorus metabolism (principal); M10.9 Gout, unspecified; N39.0 Urinary tract infection, site not specified; R80.9 Proteinuria, unspecified; D50.9 Iron deficiency anemia, unspecified
CPT/HCPCS: 36415; 80048; 81001; 82040; 82306; 82570; 82728; 83540; 83550; 83735; 83970; 84100; 84156; 84550; 85025

== ENCOUNTER → 2021-07-21 | Outpatient (CLI) | payer MEDICARE, BC ==
[2021-07-21 23:28] LABS: Appearance,Urine Clear (Clear); Bilirubin,Urine Negative (Negative); Blood,Urine Negative (Negative); Color,Urine Yellow (Yellow); Ketones,Urine Trace mg/dL (Negative); Leukocyte Esterase,Urine Negative (Negative); Nitrite,Urine Negative (Negative); Protein,Urine Trace (Negative); Specific Gravity,Urine 1.021 (1.001-1.030)
[2021-07-22 02:48] LABS: African American GFR (CKD) 46.8 (60.0-200.0); Albumin 4.1 g/dL (3.8-4.9); Albumin/Globulin Ratio 1.64 (1.60-3.17); Anion Gap 11.5 mmol/L (10.00-18.00); BUN/Creat Ratio 12.56 Ratio (12.00-20.00); Blood Urea Nitrogen 20.1 mg/dL (9.0-27.0); Calcium 8.9 mg/dL (8.7-10.3); Carbon Dioxide 23.5 mmol/L (20.0-27.5); Globulin 2.5 g/dL (1.6-3.3); Magnesium 2.7 mg/dL (1.5-2.4); Non-African American GFR(CKD) 40.4 (60.0-200.0); Phosphorus 3.9 mg/dL (2.4-5.1); Potassium 4.8 mmol/L (3.5-5.5); Total Bilirubin 0.4 mg/dL (0.30-1.20); Total Protein 6.6 g/dL (6.2-8.2); Uric Acid 6.9 mg/dL (3.7-8.7)
== END | disposition home or self-care (01) ==
LOC: LABWHC1 14:45
PROVIDERS: ATTEND Internal Medicine Nephrology
DX: N25.81 Secondary hyperparathyroidism of renal origin (principal); N39.0 Urinary tract infection, site not specified; D64.9 Anemia, unspecified; R80.9 Proteinuria, unspecified; M10.9 Gout, unspecified; N18.32 Chronic kidney disease, stage 3b
CPT/HCPCS: 36415; 80053; 81003; 82306; 83735; 83970; 84100; 84550

== ENCOUNTER → 2021-11-17 | Outpatient (CLI) | payer MEDICARE, BC ==
[2021-11-17 12:47] LABS: Creatinine,Urine Random 225.3 mg/dL; Protein/Creatinine Ratio,Urine 0.058
[2021-11-17 18:25] LABS: Appearance,Urine Clear (Clear); Bilirubin,Urine Negative (Negative); Blood,Urine Negative (Negative); Color,Urine Yellow (Yellow); Ketones,Urine Trace mg/dL (Negative); Nitrite,Urine Negative (Negative); PH, Urine 5.5 (5.0-8.0); Specific Gravity,Urine 1.025 (1.001-1.030); Urobilinogen,Urine 0.2 (0.2,1.0)
[2021-11-17 19:07] LABS: Ferritin 75.2 ng/mL (22.0-322.0)
[2021-11-17 19:19] LABS: Basophils # (A) 0.04 X 10*3/uL (0.00-0.10); Basophils % (A) 0.6 %; Eosinophils % (A) 1.6 %; HCT 41.7 % (39.6-50.0); HGB 13.9 g/dL (13.0-17.0); Immature Grans, Automated 0.6 %; Lymphocytes # (A) 1.69 X 10*3/uL (0.90-5.00); Lymphocytes % (A) 27.2 %; MCHC 33.3 g/dL (32.0-37.0); MCV 93.1 fL (80.0-97.0); Mean Platelet Volume 10.1 fL (9.5-12.2); Monocytes # (A) 0.63 X 10*3/uL (0.20-1.00); Monocytes % (A) 10.1 %; NRBC Per 100 WBC 0 /100 WBCS (0.0-0.0); Neutrophils # (A) 3.72 X 10*3/uL (1.80-7.70); Neutrophils % (A) 59.9 %; Platelet Count 183 X 10*3/uL (140-440); RBC 4.48 X 10*6/uL (4.40-5.60); RDW 13.1 % (11.5-14.5); WBC 6.22 X 10*3/uL (4.50-10.00)
[2021-11-17 19:34] LABS: African American GFR (CKD) 50.6 (60.0-200.0); Anion Gap 10.9 mmol/L (10.00-18.00); BUN/Creat Ratio 15.87 Ratio (12.00-20.00); Blood Urea Nitrogen 23.8 mg/dL (9.0-27.0); Calcium 8.7 mg/dL (8.7-10.3); Carbon Dioxide 23.1 mmol/L (20.0-27.5); Magnesium 2.1 mg/dL (1.5-2.4); Non-African American GFR(CKD) 43.7 (60.0-200.0); Phosphorus 3.2 mg/dL (2.4-5.1); Potassium 4.1 mmol/L (3.5-5.5); Uric Acid 6.7 mg/dL (3.7-8.7)
[2021-11-17 20:03] LABS: % Iron Saturation 41.07 (15.00-50.00)
== END | disposition home or self-care (01) ==
LOC: LABWHC1 10:17
PROVIDERS: ATTEND Internal Medicine Nephrology
DX: N25.81 Secondary hyperparathyroidism of renal origin (principal); N18.32 Chronic kidney disease, stage 3b; E55.9 Vitamin D deficiency, unspecified; E21.3 Hyperparathyroidism, unspecified; M10.9 Gout, unspecified; N39.0 Urinary tract infection, site not specified; D64.9 Anemia, unspecified
CPT/HCPCS: 36415; 80048; 81003; 82040; 82306; 82570; 82728; 83540; 83550; 83735; 83970; 84100; 84156; 84550; 85025

== ENCOUNTER → 2022-03-30 | Outpatient (CLI) | payer MEDICARE, BC ==
[2022-03-30 11:58] LABS: Protein/Creatinine Ratio,Urine 0.054
[2022-03-30 15:16] LABS: Albumin 4.1 g/dL (3.8-4.9); Ferritin 68.8 ng/mL (22.0-322.0)
[2022-03-30 15:21] LABS: Basophils # (A) 0.04 X 10*3/uL (0.00-0.10); Basophils % (A) 0.6 %; Eosinophils # (A) 0.11 X 10*3/uL (0.04-0.35); Eosinophils % (A) 1.7 %; HCT 43.5 % (39.6-50.0); HGB 14.8 g/dL (13.0-17.0); Immature Grans, Automated 0.3 %; Lymphocytes # (A) 1.72 X 10*3/uL (0.90-5.00); Lymphocytes % (A) 26.1 %; MCH 32.2 pg (27.0-32.0); MCV 94.6 fL (80.0-97.0); Mean Platelet Volume 9.8 fL (9.5-12.2); Monocytes # (A) 0.63 X 10*3/uL (0.20-1.00); Monocytes % (A) 9.5 %; NRBC Per 100 WBC 0 /100 WBCS (0.0-0.0); Neutrophils # (A) 4.08 X 10*3/uL (1.80-7.70); Neutrophils % (A) 61.8 %; Platelet Count 193 X 10*3/uL (140-440); RDW 12.5 % (11.5-14.5)
[2022-03-30 16:00] LABS: Appearance,Urine Clear (Clear); Bilirubin,Urine Negative (Negative); Blood,Urine Negative (Negative); Color,Urine Yellow (Yellow); Ketones,Urine Trace mg/dL (Negative); Nitrite,Urine Negative (Negative); PH, Urine 5.5 (5.0-8.0); Specific Gravity,Urine 1.021 (1.001-1.030)
[2022-03-30 18:18] LABS: % Iron Saturation 35.23 (15.00-50.00); African American GFR (CKD) 47.5 (60.0-200.0); Anion Gap 12.2 mmol/L (10.00-18.00); BUN/Creat Ratio 13.1 Ratio (12.00-20.00); Blood Urea Nitrogen 20.7 mg/dL (9.0-27.0); Calcium 9.2 mg/dL (8.7-10.3); Carbon Dioxide 24.1 mmol/L (20.0-27.5); Magnesium 2.1 mg/dL (1.5-2.4); Phosphorus 3.2 mg/dL (2.4-5.1); Potassium 4.5 mmol/L (3.5-5.5); Uric Acid 6.4 mg/dL (3.7-8.7)
== END | disposition home or self-care (01) ==
LOC: LABWHC1 10:15
PROVIDERS: ATTEND Nurse Practitioner Acute Care
DX: N25.81 Secondary hyperparathyroidism of renal origin (principal); N18.32 Chronic kidney disease, stage 3b; D63.1 Anemia in chronic kidney disease; M10.9 Gout, unspecified; N39.0 Urinary tract infection, site not specified; R80.9 Proteinuria, unspecified
CPT/HCPCS: 36415; 80048; 81003; 82040; 82306; 82570; 82728; 83540; 83550; 83735; 83970; 84100; 84156; 84550; 85025

== ENCOUNTER 2022-04-18 04:55 | Emergency (ER) | payer MEDICARE, BC ==
[2022-04-18 05:34] VITALS: RESP 16
[2022-04-18] MEDS ORDERED: IBUPROFEN 600 MG TAB PO STA (05:51)
[2022-04-18] MEDS ORDERED: IPRATROPIUM-ALBUTEROL 3 ML NEB INHALATION STA (05:51)
[2022-04-18] MEDS ORDERED: ACETAMINOPHEN TAB 500 MG TAB PO STA (05:51)
[2022-04-18] MEDS ORDERED: SODIUM CHLORIDE 0.9% 1,000 ML IV STA (05:51)
--- NOTE | 2022-04-18 05:51 | ED ---
URI HPI - General Chief Complaint: Upper Respiratory Infection Stated Complaint: Cough, chest congestion Time Seen by Provider: 04/18/22 05:03 Source: patient, RN notes reviewed, old records reviewed Mode of arrival: ambulatory Limitations: no limitations - History of Present Illness Initial Comments: This is a 81-year-old male to the emergency department for evaluation. Presents today for evaluation regards to overall recently not feeling well. Patient's chest cut over pneumonia been at the doctor's office a lot recently. His mucus and coughing ingestion and he can't clear with concern for pneumonia. Patient denying chest pain denying weakness denying any other significant complaints. Patient states he generally feels well he does have history of A. fib high blood pressure high cholesterol MD Complaint: cough, nasal congestion -: days(s) Severity: moderate Severity scale (1-10): 4 Quality: dull Consistency: intermittent Improves With: nothing Worsens With: nothing Associated Symptoms: chills, nasal congestion, sore throat, cough Treatments Prior to Arrival: none - Related Data Home Medications Medication Instructions Recorded Confirmed Atorvastatin [Lipitor] 20 mg PO HS 03/08/16 01/17/18 Warfarin [Coumadin] 2.5 mg PO MOWEFR 03/08/16 01/17/18 Warfarin [Coumadin] 3.75 mg PO SUTUTHSA 03/08/16 01/17/18 Gabapentin [Neurontin] 600 mg PO TID 01/09/18 01/17/18 Triamterene/Hydrochlorothiazid 1 tab PO DAILY 01/09/18 01/17/18 [Triamterene-Hctz 37.5-25 mg Tb] lisinopriL [Zestril] 20 mg PO DAILY 01/09/18 01/17/18 Previous Rx's Medication Instructions Recorded Dronedarone [Multaq] 400 mg PO AC-BID #60 tab 03/10/16 Metoprolol Tartrate [Lopressor] 25 mg PO BID #60 tab 03/10/16 HYDROcodone/APAP 5-325MG [[place] 1 - 2 tab PO Q4-6H PRN #45 tab 01/18/18 5-325] Sennosides [Senokot] 1 tab PO BID #60 tablet 01/18/18 Azithromycin [Zithromax] 500 mg PO DAILY 7 Days #7 tab 04/18/22 predniSONE 50 mg PO DAILY #5 tab 04/18/22 Allergies Allergy/AdvReac Type Severity Reaction Status Date / Time No Known Allergies Allergy Verified 04/18/22 05:01 Review of Systems ROS Statement: Those systems with pertinent positive or pertinent negative responses have been documented in the HPI. ROS Other: All systems not noted in ROS Statement are negative. Past Medical History Past Medical History: Atrial Fibrillation, Hyperlipidemia, Hypertension Additional Past Medical History / Comment(s): Pt states in January 2011 he had a cardioversion which was successful and to his knowledge he has not had an irregular heart beat until today. Other HX: palpitations History of Any Multi-Drug Resistant Organisms: None Reported Past Surgical History: Back Surgery, Cholecystectomy, Hernia Repair Additional Past Surgical History / Comment(s): Low back surgery for blood vessel that ruptured, bilateral inguinal hernias, 01/2011 cardioversion, colonoscopies. Past Anesthesia/Blood Transfusion Reactions: No Reported Reaction Past Psychological History: No Psychological Hx Reported Smoking Status: Never smoker Past Alcohol Use History: None Reported Past Drug Use History: None Reported - Past Family History Father Family Medical History: Myocardial Infarction ([place]) Additional Family Medical History / Comment(s): Father of a [place] at the age of 66yrs. Mother Additional Family Medical History / Comment(s): Mother of heart problems at the age of 81 yrs. General Exam Limitations: no limitations General appearance: alert, in no apparent distress Head exam: Present: atraumatic, normocephalic, normal inspection Eye exam: Present: normal appearance, PERRL, EOMI. Absent: scleral icterus, conjunctival injection, periorbital swelling ENT exam: Present: normal exam, mucous membranes moist Neck exam: Present: normal inspection. Absent: tenderness, meningismus, lymphadenopathy Respiratory exam: Present: normal lung sounds bilaterally. Absent: respiratory distress, wheezes, rales, rhonchi, stridor Cardiovascular Exam: Present: regular rate, normal rhythm, normal heart sounds. Absent: systolic murmur, diastolic murmur, rubs, gallop, clicks GI/Abdominal exam: Present: soft, normal bowel sounds. Absent: distended, tenderness, guarding, rebound, rigid Extremities exam: Present: normal inspection, full ROM, normal capillary refill. Absent: tenderness, pedal edema, joint swelling, calf tenderness Back exam: Present: normal inspection Neurological exam: Present: alert, oriented X3, CN II-XII intact Psychiatric exam: Present: normal affect, normal mood Skin exam: Present: warm, dry, intact, normal color. Absent: rash Course Vital Signs 04/18/22 04/18/22 04/18/22 04:59 05:01 06:14 Temperature 98 F 99.1 F Pulse Rate 71 60 72 Respiratory 18 16 Rate Blood Pressure 188/92 143/87 O2 Sat by Pulse 98 97 Oximetry 04/18/22 04/18/22 06:24 07:23 Temperature 97.9 F Pulse Rate 80 62 Respiratory 16 Rate Blood Pressure 152/88 O2 Sat by Pulse 98 Oximetry - Reevaluation(s) Reevaluation #1: 04/18/22 06:05 Medical record is reviewed Reevaluation #2: Patient informed of results and questions answered Reevaluation #3: Patient symptoms are improving Medical Decision Making - Medical Decision Making 81 male to the ED w cough not feeling well, here with bronchitis and can be discharged home - Lab Data Result diagrams: 04/18/22 06:13 04/18/22 06:13 Lab Results 04/18/22 04/18/22 04/18/22 Range/Units 05:56 06:13 06:13 WBC 6.1 (3.8-10.6) k/uL RBC 4.65 (4.30-5.90) m/uL Hgb 15.1 (13.0-17.5) gm/dL Hct 42.0 (39.0-53.0) % MCV 90.4 (80.0-100.0) fL MCH 32.4 (25.0-35.0) pg MCHC 35.8 (31.0-37.0) g/dL RDW 12.6 (11.5-15.5) % Plt Count 153 (150-450) k/uL MPV 7.5 Neutrophils % 74 % Lymphocytes % 15 % Monocytes % 6 % Eosinophils % 2 % Basophils % 1 % Neutrophils # 4.6 (1.3-7.7) k/uL Lymphocytes # 0.9 L (1.0-4.8) k/uL Monocytes # 0.4 (0-1.0) k/uL Eosinophils # 0.1 (0-0.7) k/uL Basophils # 0.0 (0-0.2) k/uL Sodium 137 (137-145) mmol/L Potassium 4.1 (3.5-5.1) mmol/L Chloride 108 H (98-107) mmol/L Carbon Dioxide 22 (22-30) mmol/L Anion Gap 7 mmol/L BUN 19 (9-20) mg/dL Creatinine 1.36 H (0.66-1.25) mg/dL Est GFR (CKD-EPI)AfAm 57 (>60 ml/min/1.73 sqM) Est GFR (CKD-EPI)NonAf 49 (>60 ml/min/1.73 sqM) Glucose 102 H (74-99) mg/dL Plasma Lactic Acid Caleb (0.7-2.0) mmol/L Calcium 8.5 (8.4-10.2) mg/dL Phosphorus 3.3 (2.5-4.5) mg/dL Magnesium 1.9 (1.6-2.3) mg/dL Total Bilirubin 1.0 (0.2-1.3) mg/dL AST 25 (17-59) U/L ALT 21 (4-49) U/L Alkaline Phosphatase 63 (38-126) U/L Troponin I (0.000-0.034) ng/mL NT-Pro-B Natriuret Pep pg/mL Total Protein 6.8 (6.3-8.2) g/dL Albumin 3.8 (3.5-5.0) g/dL Influenza Type A (PCR) Not Detected (Not Detectd) Influenza Type B (PCR) Not Detected (Not Detectd) RSV (PCR) Detected A (Not Detectd) SARS-CoV-2 (PCR) Not Detected (Not Detectd) 04/18/22 04/18/22 04/18/22 Range/Units 06:13 06:13 06:13 WBC (3.8-10.6) k/uL RBC (4.30-5.90) m/uL Hgb (13.0-17.5) gm/dL Hct (39.0-53.0) % MCV (80.0-100.0) fL MCH (25.0-35.0) pg MCHC (31.0-37.0) g/dL RDW (11.5-15.5) % Plt Count (150-450) k/uL MPV Neutrophils % % Lymphocytes % % Monocytes % % Eosinophils % % Basophils % % Neutrophils # (1.3-7.7) k/uL Lymphocytes # (1.0-4.8) k/uL Monocytes # (0-1.0) k/uL Eosinophils # (0-0.7) k/uL Basophils # (0-0.2) k/uL Sodium (137-145) mmol/L Potassium (3.5-5.1) mmol/L Chloride (98-107) mmol/L Carbon Dioxide (22-30) mmol/L Anion Gap mmol/L BUN (9-20) mg/dL Creatinine (0.66-1.25) mg/dL Est GFR (CKD-EPI)AfAm (>60 ml/min/1.73 sqM) Est GFR (CKD-EPI)NonAf (>60 ml/min/1.73 sqM) Glucose (74-99) mg/dL Plasma Lactic Acid Caleb 0.9 (0.7-2.0) mmol/L Calcium (8.4-10.2) mg/dL Phosphorus (2.5-4.5) mg/dL Magnesium (1.6-2.3) mg/dL Total Bilirubin (0.2-1.3) mg/dL AST (17-59) U/L ALT (4-49) U/L Alkaline Phosphatase (38-126) U/L Troponin I <0.012 (0.000-0.034) ng/mL NT-Pro-B Natriuret Pep 2890 pg/mL Total Protein (6.3-8.2) g/dL Albumin (3.5-5.0) g/dL Influenza Type A (PCR) (Not Detectd) Influenza Type B (PCR) (Not Detectd) RSV (PCR) (Not Detectd) SARS-CoV-2 (PCR) (Not Detectd) - EKG Data -: EKG Interpreted by Me (EKG is atrial fibrillation 60 QRS 85 QTc 446) - Radiology Data Radiology results: report reviewed (CXR is negative for acute disaese), image reviewed Disposition Clinical Impression: Viral infection, Bronchitis, Asthmatic bronchitis Disposition: HOME SELF-CARE Condition: Good Instructions (If sedation given, give patient instructions): Upper Respiratory Infection (ED) Prescriptions: predniSONE 50 mg PO DAILY #5 tab Azithromycin [Zithromax] 500 mg PO DAILY 7 Days #7 tab Is patient prescribed a controlled substance at d/c from ED?: No Referrals: Lj Alonso DO [Primary Care Provider] - 1-2 days Time of Disposition: 07:05
--- NOTE | 2022-04-18 06:21 | XR ---
EXAMINATION TYPE: XR chest 1V portable DATE OF EXAM: 04/18/2022 COMPARISON: 03/08/2016 HISTORY: Chest pain TECHNIQUE: FINDINGS: Heart is normal. Lungs are clear of infiltrate. No heart failure. There are no hilar masses . Costophrenic angles are clear. IMPRESSION: No active cardiopulmonary disease. No change
[2022-04-18 06:41] LABS: Basophils % (A) 1 %; Eosinophils # (A) 0.1 k/uL (0-0.7); Eosinophils % (A) 2 %; HGB 15.1 gm/dL (13.0-17.5); Lymphocytes # (A) 0.9 k/uL (1.0-4.8); Lymphocytes % (A) 15 %; MCH 32.4 pg (25.0-35.0); MCHC 35.8 g/dL (31.0-37.0); MCV 90.4 fL (80.0-100.0); Mean Platelet Volume 7.5; Monocytes # (A) 0.4 k/uL (0-1.0); Monocytes % (A) 6 %; Neutrophils # (A) 4.6 k/uL (1.3-7.7); Neutrophils % (A) 74 %; Platelet Count 153 k/uL (150-450); RBC 4.65 m/uL (4.30-5.90); RDW 12.6 % (11.5-15.5); WBC 6.1 k/uL (3.8-10.6)
[2022-04-18 06:54] LABS: Albumin 3.8 g/dL (3.5-5.0); Calcium 8.5 mg/dL (8.4-10.2); Magnesium 1.9 mg/dL (1.6-2.3); Phosphorus 3.3 mg/dL (2.5-4.5); Potassium 4.1 mmol/L (3.5-5.1); Total Protein 6.8 g/dL (6.3-8.2)
[2022-04-18] MEDS ORDERED: AZITHROMYCIN 500 MG TAB PO STA (07:03)
[2022-04-18] MEDS ORDERED: DEXAMETHASONE SOD PHOSPHATE 10 MG/ML 1 ML VIAL IVP STA (07:03)
[2022-04-18 07:24] VITALS: BP 152/88; PULSE 62; TEMP 97.9
== END 2022-04-18 07:23 | disposition home or self-care (01) ==
LOC: EC 04:55
DX: J45.909 Unspecified asthma, uncomplicated (principal); B34.9 Viral infection, unspecified; I10 Essential (primary) hypertension; I48.91 Unspecified atrial fibrillation; Z20.822 Contact with and (suspected) exposure to COVID-19
CPT/HCPCS: 36415; 94640; 93005; 83880; 80053; 83605; 83735; 84100; 84484; 85025; 87040; 87636; 71045; 99285; 96374; 96361; J1100

== ENCOUNTER 2023-03-16 17:37 | Emergency (ER) | payer MEDICARE, BC ==
--- NOTE | 2023-03-16 19:27 | ED ---
Wound/Laceration HPI - General Chief Complaint: Wound/Laceration Stated Complaint: Recheck Time Seen by Provider: 03/16/23 19:23 Source: patient, RN notes reviewed Mode of arrival: ambulatory Limitations: no limitations - History of Present Illness Initial Comments: This is a pleasant 82-year-old male who arrives to the emergency room for evaluation of a wound to the dorsum of his right forearm. Patient states he had a biopsy 2 weeks ago at the sewer pipe cleaner's office which showed skin cancer. He returned there today for excision with margins. Both he and his state that the area was sutured. A bandage was placed. States that the blood through the bandage. Patient denies any other bleeding. No nosebleeds. No hematuria. Vision is on Xarelto for atrial fibrillation. Ceased. The patient does have minimal amount of blood dried on the bandage. Patient denying any pain. Patient states he feels well otherwise. No headache, no fever or chills, no changes in vision or hearing, no sore throat or difficulty with speech, no neck pain, no chest pain or shortness of breath, no abdominal pain, no nausea or vomiting, no changes in urination or bowel movements, no numbness or tingling, no extremity pain, no skin rashes or lesions. Past medical, surgical, social, and family history reviewed. - Related Data Home Medications Medication Instructions Recorded Confirmed Atorvastatin [Lipitor] 20 mg PO HS 03/08/16 01/17/18 Warfarin [Coumadin] 2.5 mg PO MOWEFR 03/08/16 01/17/18 Warfarin [Coumadin] 3.75 mg PO SUTUTHSA 03/08/16 01/17/18 Gabapentin [Neurontin] 600 mg PO TID 01/09/18 01/17/18 Triamterene/Hydrochlorothiazid 1 tab PO DAILY 01/09/18 01/17/18 [Triamterene-Hctz 37.5-25 mg Tb] lisinopriL [Zestril] 20 mg PO DAILY 01/09/18 01/17/18 Previous Rx's Medication Instructions Recorded Dronedarone [Multaq] 400 mg PO AC-BID #60 tab 03/10/16 Metoprolol Tartrate [Lopressor] 25 mg PO BID #60 tab 03/10/16 HYDROcodone/APAP 5-325MG [[place] 1 - 2 tab PO Q4-6H PRN #45 tab 01/18/18 5-325] Sennosides [Senokot] 1 tab PO BID #60 tablet 01/18/18 Azithromycin [Zithromax] 500 mg PO DAILY 7 Days #7 tab 04/18/22 predniSONE 50 mg PO DAILY #5 tab 04/18/22 Allergies Allergy/AdvReac Type Severity Reaction Status Date / Time No Known Allergies Allergy Verified 04/18/22 05:01 Review of Systems ROS Statement: Those systems with pertinent positive or pertinent negative responses have been documented in the HPI. ROS Other: All systems not noted in ROS Statement are negative. Past Medical History Past Medical History: Atrial Fibrillation, Hyperlipidemia, Hypertension Additional Past Medical History / Comment(s): Pt states in January 2011 he had a cardioversion which was successful and to his knowledge he has not had an irregular heart beat until today. Other HX: palpitations History of Any Multi-Drug Resistant Organisms: None Reported Past Surgical History: Back Surgery, Cholecystectomy, Hernia Repair Additional Past Surgical History / Comment(s): Low back surgery for blood vessel that ruptured, bilateral inguinal hernias, 01/2011 cardioversion, colonoscopies. Past Anesthesia/Blood Transfusion Reactions: No Reported Reaction Past Psychological History: No Psychological Hx Reported Smoking Status: Never smoker Past Alcohol Use History: None Reported Past Drug Use History: None Reported - Past Family History Father Family Medical History: Myocardial Infarction ([place]) Additional Family Medical History / Comment(s): Father of a [place] at the age of 66yrs. Mother Additional Family Medical History / Comment(s): Mother of heart problems at the age of 81 yrs. General Exam Limitations: no limitations General appearance: alert, in no apparent distress Head exam: Present: atraumatic, normocephalic, normal inspection Eye exam: Present: normal appearance, PERRL, EOMI. Absent: scleral icterus, conjunctival injection, periorbital swelling ENT exam: Present: normal exam, mucous membranes moist Neck exam: Present: normal inspection. Absent: lymphadenopathy Respiratory exam: Present: normal lung sounds bilaterally. Absent: respiratory distress, wheezes, rales, rhonchi, stridor Cardiovascular Exam: Present: regular rate, normal rhythm, normal heart sounds. Absent: systolic murmur, diastolic murmur, rubs, gallop, clicks GI/Abdominal exam: Present: soft. Absent: distended Extremities exam: Present: full ROM, normal capillary refill, other (Patient has a dressing dry and in place on the right forearm. No distal or proximal normality. No erythema. Light dressing. Pulses are 2+ out of 4. Refill less than 2 seconds.). Absent: tenderness, pedal edema, joint swelling, calf tenderness Back exam: Present: normal inspection Neurological exam: Present: alert, oriented X3, CN II-XII intact Psychiatric exam: Present: normal affect, normal mood Skin exam: Present: warm, dry, intact, normal color. Absent: rash Course Vital Signs 03/16/23 18:03 Temperature 98 F Pulse Rate 53 L Respiratory 16 Rate Blood Pressure 172/93 O2 Sat by Pulse 98 Oximetry Medical Decision Making - Medical Decision Making Was pt. sent in by a medical professional or institution? @ -no Did you speak to anyone other than the patient for history? @ -Spouse Did you review nursing and triage notes? @ -Agree Were old charts reviewed? @ -no Differential Diagnosis? @ -Presents for evaluation of right forearm from skin cancer excision with margins done at the dermatology office today. No other complaints. Does not appear to be ill or toxic. Consistent with neurovascular injury. EKG interpreted by me (3pts min.)? @ -[none] X-rays interpreted by me (1pt min.)? @ -[none] CT interpreted by me (1pt min.)? @ -[none] U/S interpreted by me (1pt. min.)? @ -[none] What testing was considered but not performed? (CT, X-rays, U/S, labs)? Why? @ [CT, X-rays, U/S, labs? Why?] What meds were considered but not given? Why? @ -[none] Did you discuss the management of the patient with other professionals? @ -no Did you reconcile home meds? @ -[none] Was smoking cessation discussed for >3mins.? @ -[none] Was critical care preformed (if so, how long)? @ -[none] Were there social determinants of health that impacted care today? How? (Homelessness, low income, unemployed, alcoholism, drug addiction, transportation, low edu. Level, literacy, decrease access to med. care, long term, rehab)? @ -none Was there de-escalation of care discussed even if they declined? (Discuss DNR or withdrawal of care, Hospice)? @ -[Discuss DNR or withdrawal of care, Hospice?] What co-morbidities impacted this encounter? (DM, HTN, Smoking, COPD, CAD, Cancer, CVA, Hep., AIDS, mental health diagnosis, sleep apnea, morbid obesity)? @ -Atrial fibrillation, on Xarelto Was patient admitted / discharged? @ -Stable, discharged Undiagnosed new problem with uncertain prognosis? @ -[none] Drug Therapy requiring intensive monitoring for toxicity (Heparin, Nitro, Insulin, Cardizem)? @ -[none] Were any procedures done? @ -[none] Diagnosis/symptom? @ -Postprocedural bleeding, right forearm, wound Acute, or Chronic, or Acute on Chronic? @ -Acute Uncomplicated (without systemic symptoms) or Complicated (systemic symptoms)? @ -Uncomplicated Side effects of treatment? @ -[none] Exacerbation, Progression, or Severe Exacerbation] @ -[no] Poses a threat to life or bodily function? @ -Unlikely. Discussion patient and his . The bleeding has actually states his pain. Patient has no complaints. No evidence of neurovascular injury or infectious process. Take the bandage off although I did discuss the risks to include bleeding. The patient was found to leave this bandage on for 48 hours as instructed by a sewer pipe cleaner. I discussed removing the bandage gently on Tuesday. I discussed with him symptoms arise. They concurred with this treatment plan. Make his own medical decisions. She is to leave the current bandage in place. Note that this patient is stable, no other complaints, looks well otherwise. Patient was told to return to the ER for any signs or symptoms worsen. Told to return immediately if any other problems arise. All questions answered. Treatment plan discussed. Patient in agreement Every effort has been made to ensure accuracy of this dictation. However, due to the limitations of electronic medical records and dictation devices, errors in charting still occur. Disposition Clinical Impression: Wound of right upper extremity Disposition: HOME SELF-CARE Condition: Good Instructions (If sedation given, give patient instructions): Acute Wounds (ED) Additional Instructions: Wound care per the sewer pipe cleaner. Leave bandage in place for 48 hours. Then removed the bandage gently by soaking in warm soapy water. Follow the wound care instructions per the sewer pipe cleaner. Return to the ER immediately if any symptoms worsen, new symptoms arise, or any other problems develop. Is patient prescribed a controlled substance at d/c from ED?: No Referrals: Isaac Valladares MD [STAFF PHYSICIAN] - 03/18/23 Time of Disposition: 19:27
[2023-03-16 20:43] VITALS: BP 180/97; PULSE 76; RESP 18; TEMP 98.2
== END 2023-03-16 19:37 | disposition home or self-care (01) ==
LOC: EC 17:37
DX: S51.801A Unspecified open wound of right forearm, initial encounter (principal); I48.91 Unspecified atrial fibrillation; I10 Essential (primary) hypertension; E78.5 Hyperlipidemia, unspecified; Z79.01 Long term (current) use of anticoagulants; Z79.899 Other long term (current) drug therapy; X58.XXXA Exposure to other specified factors, initial encounter
CPT/HCPCS: 99282

== ENCOUNTER 2023-03-28 11:26 | Emergency (ER) | payer MEDICARE, BC ==
[2023-03-28] MEDS ORDERED: SODIUM CHLORIDE 0.9% 500 ML 500 ML IV STA (11:57)
[2023-03-28] MEDS ORDERED: ACETAMINOPHEN TAB 325 MG TAB PO STA (11:58)
--- NOTE | 2023-03-28 12:00 | ED ---
Weakness HPI - General Source: patient, EMS, RN notes reviewed Mode of arrival: EMS Limitations: no limitations <Kaleb Castillo - Last Filed: 03/28/23 11:58> <Shelton Loo - Last Filed: 03/29/23 07:08> - General Chief complaint: Weakness Stated complaint: Weakness Time Seen by Provider: 03/28/23 11:50 - History of Present Illness Initial comments: 82-year-old male presents emergency Department with chief complaint of multiple falls, weakness. Patient states he has not felt well over the last few days he has had some mild URI symptoms. Patient went to follow-up at PCPs office today in which she had another fall, near syncope episode sent him here for evaluation. He denies any head injury denies headache or any focal weakness. Denies any chest pain shortness breath leg swelling. (Kaleb Castillo) - Related Data Home Medications Medication Instructions Recorded Confirmed Atorvastatin [Lipitor] 20 mg PO HS 03/08/16 03/28/23 lisinopriL [Zestril] 20 mg PO HS 01/09/18 03/28/23 Doxycycline Hyclate 100 mg PO BID 03/28/23 03/28/23 Rivaroxaban [Xarelto] 20 mg PO HS 03/28/23 03/28/23 Vitamin D3/Vitamin K2 (Mk4) 1 tab PO DAILY 03/28/23 03/28/23 [Vitamin K2 Plus D3 Tablet] allopurinoL 50 mg PO HS 03/28/23 03/28/23 calcitrioL [Calcitriol] 0.5 mcg PO TOLBERT 03/28/23 03/28/23 Previous Rx's Medication Instructions Recorded Dronedarone [Multaq] 400 mg PO AC-BID #60 tab 03/10/16 Metoprolol Tartrate [Lopressor] 25 mg PO BID #60 tab 03/10/16 Allergies Allergy/AdvReac Type Severity Reaction Status Date / Time No Known Allergies Allergy Verified 03/28/23 13:46 Review of Systems ROS Other: All systems not noted in ROS Statement are negative. <Kaleb Castillo - Last Filed: 03/28/23 11:58> ROS Other: All systems not noted in ROS Statement are negative. <Shelton Loo - Last Filed: 03/29/23 07:08> ROS Statement: Those systems with pertinent positive or pertinent negative responses have been documented in the HPI. Past Medical History Past Medical History: Atrial Fibrillation, Hyperlipidemia, Hypertension Additional Past Medical History / Comment(s): Pt states in January 2011 he had a cardioversion which was successful and to his knowledge he has not had an i rregular heart beat until today. Other HX: palpitations History of Any Multi-Drug Resistant Organisms: None Reported Past Surgical History: Back Surgery, Cholecystectomy, Hernia Repair Additional Past Surgical History / Comment(s): Low back surgery for blood vessel that ruptured, bilateral inguinal hernias, 01/2011 cardioversion, colonoscopies. Past Anesthesia/Blood Transfusion Reactions: No Reported Reaction Past Psychological History: No Psychological Hx Reported Smoking Status: Never smoker Past Alcohol Use History: None Reported Past Drug Use History: None Reported - Past Family History Father Family Medical History: Myocardial Infarction (MN) Additional Family Medical History / Comment(s): Father of a MN at the age of 66yrs. Mother Additional Family Medical History / Comment(s): Mother of heart problems at the age of 81 yrs. <Kaleb Castillo M - Last Filed: 03/28/23 11:58> General Exam Limitations: no limitations General appearance: alert, in no apparent distress Head exam: Present: atraumatic, normocephalic, normal inspection Eye exam: Present: normal appearance, PERRL, EOMI. Absent: scleral icterus, conjunctival injection, periorbital swelling ENT exam: Present: normal exam, normal oropharynx, mucous membranes moist Neck exam: Present: normal inspection, full ROM. Absent: tenderness, meningismus, lymphadenopathy Respiratory exam: Present: normal lung sounds bilaterally. Absent: respiratory distress, wheezes, rales, rhonchi, stridor Cardiovascular Exam: Present: regular rate, normal rhythm, normal heart sounds. Absent: systolic murmur, diastolic murmur, rubs, gallop, clicks GI/Abdominal exam: Present: soft, normal bowel sounds. Absent: distended, tenderness, guarding, rebound, rigid <Kaleb Castillo - Last Filed: 03/28/23 11:58> Course Vital Signs 03/28/23 03/28/23 03/28/23 11:39 12:42 16:00 Temperature 100.8 F H Pulse Rate 52 L 68 Respiratory 18 18 Rate Blood Pressure 148/94 145/94 O2 Sat by Pulse 97 97 Oximetry 03/28/23 17:02 Temperature 99.4 F Pulse Rate 56 L Respiratory 18 Rate Blood Pressure 160/94 O2 Sat by Pulse 97 Oximetry Medical Decision Making - Lab Data Result diagrams: 03/28/23 12:46 03/28/23 12:46 <Shetlon Loo N - Last Filed: 03/29/23 07:08> - Medical Decision Making Was pt. sent in by a medical professional or institution (, PA, DECORATOR HAND, urgent care, hospital, or [facility]...) When possible be specific @ -No Did you speak to anyone other than the patient for history (EMS, parent, family, police, friend...)? What history was obtained from this source @ -No Did you review nursing and triage notes (agree or disagree)? Why? @ -I reviewed and agree with nursing and triage notes Were old charts reviewed (outside hosp., previous admission, EMS record, old EKG , old radiological studies, urgent care reports/EKG's, [facility] records)? Report findings @ -No old charts were reviewed Differential Diagnosis (chest pain, altered mental status, abdominal pain women, abdominal pain men, vaginal bleeding, weakness, fever, dyspnea, syncope, headache, dizziness, GI bleed, back pain, seizure, CVA, palpatations, mental health, musculoskeletal)? @ Differential Weakness: Hypoglycemia, shock, sepsis, hyponatremia, anemia, infection, MN, ETOH, adverse medicine reaction, overdose, stroke, this is not meant to be an all-inclusive list. EKG interpreted by me (3pts min.). @ -10-year-old flutter with slow ventricular response rate of 53, QRS duration 81, QTC 425 X-rays interpreted by me (1pt min.). @ No large focal pneumonia, no pneumothorax CT interpreted by me (1pt min.). @ -None done U/S interpreted by me (1pt. min.). @ -None done What testing was considered but not performed or refused? (CT, X-rays, U/S, labs)? Why? @ -None What meds were considered but not given or refused? Why? @ -None Did you discuss the management of the patient with other professionals (professionals i.e. , PA, DECORATOR HAND, lab, RT, psych nurse, social organization professor, litigation paralegal, teacher, ordnance officer, director of casework department)? Give summary @ -No Was smoking cessation discussed for >3mins.? @ -No Was critical care preformed (if so, how long)? @ -No Were there social determinants of health that impacted care today? How? (Homelessness, low income, unemployed, alcoholism, drug addiction, transportation, low edu. Level, literacy, decrease access to med. care, group home, rehab)? @ -No Was there de-escalation of care discussed even if they declined (Discuss DNR or withdrawal of care, Hospice)? DNR status @ -No What co-morbidities impacted this encounter? (DM, HTN, Smoking, COPD, CAD, Cancer, CVA, ARF, Chemo, Hep., AIDS, mental health diagnosis, sleep apnea, morbid obesity)? @Atrial fibrillation Was patient admitted / discharged? Hospital course, mention meds given and ro yudy, prescriptions, significant lab abnormalities, going to OR and other pertinent info. @ -82-year-old with weakness, URI symptoms, several falls without injury. Workup reveals that the patient tested positive for Covid. Remainder of his workup is unremarkable. Vital signs are stable. Patient is eager for discharge. Undiagnosed new problem with uncertain prognosis? @ -No Drug Therapy requiring intensive monitoring for toxicity (Heparin, Nitro, Insulin, Cardizem)? @ -No Were any procedures done? @ -No Diagnosis/symptom? @ Weakness, coronavirus Acute, or Chronic, or Acute on Chronic? @ -[Acute Uncomplicated (without systemic symptoms) or Complicated (systemic symptoms)? @ -default Side effects of treatment? @ -No Exacerbation, Progression, or Severe Exacerbation? @ -No Poses a threat to life or bodily function? How? (Chest pain, USA, MN, pneumonia, PE, COPD, DKA, ARF, appy, cholecystitis, CVA, Diverticulitis, Homicidal, Suicidal, threat to staff... and all critical care pts) @ Low risk at this time (Shelton Loo) - Lab Data Lab Results 03/28/23 03/28/23 03/28/23 Range/Units 11:57 12:46 12:46 WBC 4.4 (3.8-10.6) k/uL RBC 4.44 (4.30-5.90) m/uL Hgb 14.6 (13.0-17.5) gm/dL Hct 42.7 (39.0-53.0) % MCV 96.1 (80.0-100.0) fL MCH 32.8 (25.0-35.0) pg MCHC 34.2 (31.0-37.0) g/dL RDW 13.0 (11.5-15.5) % Plt Count 151 (150-450) k/uL MPV 7.4 Neutrophils % 76 % Lymphocytes % 16 % Monocytes % 6 % Eosinophils % 0 % Basophils % 0 % Neutrophils # 3.4 (1.3-7.7) k/uL Lymphocytes # 0.7 L (1.0-4.8) k/uL Monocytes # 0.3 (0-1.0) k/uL Eosinophils # 0.0 (0-0.7) k/uL Basophils # 0.0 (0-0.2) k/uL PT 13.7 H (10.0-12.5) sec INR 1.3 H (<1.2) APTT 35.1 H (22.0-30.0) sec Sodium (137-145) mmol/L Potassium (3.5-5.1) mmol/L Chloride (98-107) mmol/L Carbon Dioxide (22-30) mmol/L Anion Gap mmol/L BUN (9-20) mg/dL Creatinine (0.66-1.25) mg/dL Est GFR (CKD-EPI)AfAm (>60 ml/min/1.73 sqM) Est GFR (CKD-EPI)NonAf (>60 ml/min/1.73 sqM) Glucose (74-99) mg/dL Plasma Lactic Acid Caleb (0.7-2.0) mmol/L Calcium (8.4-10.2) mg/dL Magnesium (1.6-2.3) mg/dL Total Bilirubin (0.2-1.3) mg/dL AST (17-59) U/L ALT (4-49) U/L Alkaline Phosphatase (38-126) U/L Troponin I (0.000-0.034) ng/mL Total Protein (6.3-8.2) g/dL Albumin (3.5-5.0) g/dL Urine Color Yellow Urine Appearance Clear (Clear) Urine pH 5.5 (5.0-8.0) Ur Specific [place] 1.029 (1.001-1.035) Urine Protein 2+ H (Negative) Urine Glucose (UA) Negative (Negative) Urine Ketones Negative (Negative) Urine Blood Trace (Negative) Urine Nitrite Negative (Negative) Urine Bilirubin Negative (Negative) Urine Urobilinogen >2.0 (<2.0) mg/dL Ur Leukocyte Esterase Negative (Negative) Urine RBC 5 (0-5) /hpf Urine WBC 1 (0-5) /hpf Urine Mucus Occasional H (None) /hpf Influenza Type A (PCR) (Not Detectd) Influenza Type B (PCR) (Not Detectd) RSV (PCR) (Not Detectd) SARS-CoV-2 (PCR) (Not Detectd) 03/28/23 03/28/23 03/28/23 Range/Units 12:46 12:46 12:46 WBC (3.8-10.6) k/uL RBC (4.30-5.90) m/uL Hgb (13.0-17.5) gm/dL Hct (39.0-53.0) % MCV (80.0-100.0) fL MCH (25.0-35.0) pg MCHC (31.0-37.0) g/dL RDW (11.5-15.5) % Plt Count (150-450) k/uL MPV Neutrophils % % Lymphocytes % % Monocytes % % Eosinophils % % Basophils % % Neutrophils # (1.3-7.7) k/uL Lymphocytes # (1.0-4.8) k/uL Monocytes # (0-1.0) k/uL Eosinophils # (0-0.7) k/uL Basophils # (0-0.2) k/uL PT (10.0-12.5) sec INR (<1.2) APTT (22.0-30.0) sec Sodium 140 (137-145) mmol/L Potassium 4.1 (3.5-5.1) mmol/L Chloride 106 (98-107) mmol/L Carbon Dioxide 21 L (22-30) mmol/L Anion Gap 13 mmol/L BUN 23 H (9-20) mg/dL Creatinine 1.18 (0.66-1.25) mg/dL Est GFR (CKD-EPI)AfAm 67 (>60 ml/min/1.73 sqM) Est GFR (CKD-EPI)NonAf 58 (>60 ml/min/1.73 sqM) Glucose 85 (74-99) mg/dL Plasma Lactic Acid Caleb 1.3 (0.7-2.0) mmol/L Calcium 8.8 (8.4-10.2) mg/dL Magnesium 1.9 (1.6-2.3) mg/dL Total Bilirubin 0.8 (0.2-1.3) mg/dL AST 33 (17-59) U/L ALT 25 (4-49) U/L Alkaline Phosphatase 57 (38-126) U/L Troponin I 0.013 (0.000-0.034) ng/mL Total Protein 7.3 (6.3-8.2) g/dL Albumin 4.1 (3.5-5.0) g/dL Urine Color Urine Appearance (Clear) Urine pH (5.0-8.0) Ur Specific [place] (1.001-1.035) Urine Protein (Negative) Urine Glucose (UA) (Negative) Urine Ketones (Negative) Urine Blood (Negative) Urine Nitrite (Negative) Urine Bilirubin (Negative) Urine Urobilinogen (<2.0) mg/dL Ur Leukocyte Esterase (Negative) Urine RBC (0-5) /hpf Urine WBC (0-5) /hpf Urine Mucus (None) /hpf Influenza Type A (PCR) (Not Detectd) Influenza Type B (PCR) (Not Detectd) RSV (PCR) (Not Detectd) SARS-CoV-2 (PCR) (Not Detectd) 03/28/23 Range/Units 14:38 WBC (3.8-10.6) k/uL RBC (4.30-5.90) m/uL Hgb (13.0-17.5) gm/dL Hct (39.0-53.0) % MCV (80.0-100.0) fL MCH (25.0-35.0) pg MCHC (31.0-37.0) g/dL RDW (11.5-15.5) % Plt Count (150-450) k/uL MPV Neutrophils % % Lymphocytes % % Monocytes % % Eosinophils % % Basophils % % Neutrophils # (1.3-7.7) k/uL Lymphocytes # (1.0-4.8) k/uL Monocytes # (0-1.0) k/uL Eosinophils # (0-0.7) k/uL Basophils # (0-0.2) k/uL PT (10.0-12.5) sec INR (<1.2) APTT (22.0-30.0) sec Sodium (137-145) mmol/L Potassium (3.5-5.1) mmol/L Chloride (98-107) mmol/L Carbon Dioxide (22-30) mmol/L Anion Gap mmol/L BUN (9-20) mg/dL Creatinine (0.66-1.25) mg/dL Est GFR (CKD-EPI)AfAm (>60 ml/min/1.73 sqM) Est GFR (CKD-EPI)NonAf (>60 ml/min/1.73 sqM) Glucose (74-99) mg/dL Plasma Lactic Acid Caleb (0.7-2.0) mmol/L Calcium (8.4-10.2) mg/dL Magnesium (1.6-2.3) mg/dL Total Bilirubin (0.2-1.3) mg/dL AST (17-59) U/L ALT (4-49) U/L Alkaline Phosphatase (38-126) U/L Troponin I (0.000-0.034) ng/mL Total Protein (6.3-8.2) g/dL Albumin (3.5-5.0) g/dL Urine Color Urine Appearance (Clear) Urine pH (5.0-8.0) Ur Specific [place] (1.001-1.035) Urine Protein (Negative) Urine Glucose (UA) (Negative) Urine Ketones (Negative) Urine Blood (Negative) Urine Nitrite (Negative) Urine Bilirubin (Negative) Urine Urobilinogen (<2.0) mg/dL Ur Leukocyte Esterase (Negative) Urine RBC (0-5) /hpf Urine WBC (0-5) /hpf Urine Mucus (None) /hpf Influenza Type A (PCR) Not Detected (Not Detectd) Influenza Type B (PCR) Not Detected (Not Detectd) RSV (PCR) Not Detected (Not Detectd) SARS-CoV-2 (PCR) Detected A (Not Detectd) Disposition <Kaleb Castillo M - Last Filed: 03/28/23 11:58> Is patient prescribed a controlled substance at d/c from ED?: No <Shelton Loo - Last Filed: 03/29/23 07:08> Clinical Impression: COVID-19 Disposition: HOME SELF-CARE Condition: Good Instructions (If sedation given, give patient instructions): COVID-19 (Coronavirus Disease 2019) (ED) Referrals: Jl Perez MD [Primary Care Provider] - 1-2 days
[2023-03-28 12:01] VITALS: RESP 18
[2023-03-28 12:59] LABS: Basophils % (A) 0 %; Eosinophils % (A) 0 %; HCT 42.7 % (39.0-53.0); HGB 14.6 gm/dL (13.0-17.5); Lymphocytes # (A) 0.7 k/uL (1.0-4.8); Lymphocytes % (A) 16 %; MCH 32.8 pg (25.0-35.0); MCHC 34.2 g/dL (31.0-37.0); MCV 96.1 fL (80.0-100.0); Mean Platelet Volume 7.4; Monocytes # (A) 0.3 k/uL (0-1.0); Monocytes % (A) 6 %; Neutrophils # (A) 3.4 k/uL (1.3-7.7); Neutrophils % (A) 76 %; Platelet Count 151 k/uL (150-450); RBC 4.44 m/uL (4.30-5.90); WBC 4.4 k/uL (3.8-10.6)
[2023-03-28 13:18] LABS: INR 1.3 (<1.2); Partial Thromboplastin Time 35.1 sec (22.0-30.0); Prothrombin Time 13.7 sec (10.0-12.5)
--- NOTE | 2023-03-28 13:27 | XR ---
EXAMINATION TYPE: XR chest 2V DATE OF EXAM: 03/28/2023 COMPARISON: 04/18/2022 TECHNIQUE: PA and lateral views submitted. HISTORY: Generalized weakness. FINDINGS: There is a small right pleural effusion with elevated hemidiaphragm and basilar subsegmental consolid ation. No overt failure or pneumothorax. Arthropathy of the shoulders. Atherosclerotic change aorta. Surgical clips in the gallbladder fossa. IMPRESSION: 1. Basilar atelectasis favored over pneumonia with tiny pleural effusion or pleural thickening.
[2023-03-28 13:39] LABS: ALT 25 U/L (4-49); AST 33 U/L (17-59); African American GFR (CKD) 67 (>60 ml/min/1.73 sqM); Albumin 4.1 g/dL (3.5-5.0); Alkaline Phosphatase 57 U/L (38-126); Anion Gap 13 mmol/L; Blood Urea Nitrogen 23 mg/dL (9-20); Calcium 8.8 mg/dL (8.4-10.2); Carbon Dioxide 21 mmol/L (22-30); Chloride 106 mmol/L (98-107); Glucose 85 mg/dL (74-99); Magnesium 1.9 mg/dL (1.6-2.3); Non-African American GFR(CKD) 58 (>60 ml/min/1.73 sqM); Potassium 4.1 mmol/L (3.5-5.1); Sodium 140 mmol/L (137-145); Total Bilirubin 0.8 mg/dL (0.2-1.3); Total Protein 7.3 g/dL (6.3-8.2)
[2023-03-28 16:38] LABS: Appearance,Urine Clear (Clear); Bilirubin,Urine Negative (Negative); Blood,Urine Trace (Negative); Color,Urine Yellow; Glucose,Urine (UA) Negative (Negative); Ketones,Urine Negative (Negative); Leukocyte Esterase,Urine Negative (Negative); Nitrite,Urine Negative (Negative); PH, Urine 5.5 (5.0-8.0); Protein,Urine 2+ (Negative); Urobilinogen,Urine >2.0 mg/dL (<2.0)
[2023-03-28 16:40] LABS: Mucus,Urine Occasional /hpf; RBC,Urine 5 /hpf (0-5); WBC,Urine 1 /hpf (0-5)
[2023-03-28 16:41] LABS: Specific Gravity,Urine 1.029 (1.001-1.035)
[2023-03-28 17:08] VITALS: BP 160/94; PULSE 56; TEMP 99.4
== END 2023-03-28 17:04 | disposition home or self-care (01) ==
LOC: EC 11:26
DX: U07.1 COVID-19 (principal); I48.91 Unspecified atrial fibrillation; I10 Essential (primary) hypertension; E78.5 Hyperlipidemia, unspecified; Z79.899 Other long term (current) drug therapy; Z79.01 Long term (current) use of anticoagulants
CPT/HCPCS: 36415; 71046; 80053; 81001; 83605; 83735; 84484; 85025; 85610; 85730; 87636; 93005; 99285

== ENCOUNTER 2023-07-30 21:13 | Inpatient (IN) | payer MEDICARE, BC ==
--- NOTE | 2023-07-30 21:44 | ED ---
SOB HPI - General Chief Complaint: Shortness of Breath Stated Complaint: Shortness of Breath Source: patient, EMS Mode of arrival: EMS Limitations: no limitations - History of Present Illness Initial Comments: This patient is an 83-year-old man who presents for evaluation of dyspnea. The patient states that he has not been feeling well for couple of days. The patient's further relates that he used to be able to walk 3 miles out and then returned 3 miles and now he is having difficulty getting around the house. The patient states that he becomes dyspneic with any exertion. He also notes a little bit of cough with some whitish sputum though usually nonproductive. The patient has not had chest pain. No fever or chills. He does have some mild leg edema but not noted to change. No change in urination or bowel movements. MD Complaint: shortness of breath Onset/Timin -: days(s) Severity scale (1-10): 0 Consistency: constant Improves With: rest Worsens With: exertion Associated Symptoms: cough - Related Data Home Medications Medication Instructions Recorded Confirmed Atorvastatin [Lipitor] 20 mg PO HS 03/08/16 07/31/23 Rivaroxaban [Xarelto] 20 mg PO HS 03/28/23 07/31/23 Vitamin D3/Vitamin K2 (Mk4) 1 tab PO DAILY 03/28/23 07/31/23 [Vitamin K2 Plus D3 Tablet] allopurinoL 50 mg PO HS 03/28/23 07/31/23 calcitrioL 0.5 mcg PO TOLBERT 03/28/23 07/31/23 Tamsulosin HCl [Flomax] 0.4 mg PO HS 07/31/23 07/31/23 Previous Rx's Medication Instructions Recorded Dronedarone [Multaq] 400 mg PO AC-BID #60 tab 03/10/16 Metoprolol Tartrate [Lopressor] 25 mg PO BID #60 tab 03/10/16 Clopidogrel [Plavix] 75 mg PO DAILY #90 tab 08/03/23 Losartan [Cozaar] 12.5 mg PO DAILY #90 tab 08/03/23 Nitroglycerin Sl Tabs [Nitrostat] 0.4 mg SUBLINGUAL Q5M PRN #25 tab 08/03/23 hydrALAZINE HCL [Apresoline] 25 mg PO BID #180 tab 08/03/23 Allergies Allergy/AdvReac Type Severity Reaction Status Date / Time No Known Allergies Allergy Verified 07/31/23 08:54 Review of Systems ROS Statement: Those systems with pertinent positive or pertinent negative responses have been documented in the HPI. ROS Other: All systems not noted in ROS Statement are negative. Constitutional: Reports: weakness. Denies: fever, chills ENT: Denies: throat pain, congestion Respiratory: Reports: dyspnea Cardiovascular: Reports: dyspnea on exertion, edema (Mild, unchanged). Denies: chest pain, palpitations, syncope Gastrointestinal: Denies: abdominal pain, vomiting, diarrhea, melena, hematochezia Genitourinary: Denies: dysuria, hematuria Musculoskeletal: Denies: back pain Skin: Denies: rash Neurological: Denies: headache, weakness Past Medical History Past Medical History: Atrial Fibrillation, Hyperlipidemia, Hypertension Additional Past Medical History / Comment(s): Pt states in January 2011 he had a cardioversion which was successful and to his knowledge he has not had an irregular heart beat until today. Other HX: palpitations History of Any Multi-Drug Resistant Organisms: None Reported Past Surgical History: Back Surgery, Cholecystectomy, Hernia Repair Additional Past Surgical History / Comment(s): Low back surgery for blood vessel that ruptured, bilateral inguinal hernias, 01/2011 cardioversion, colonoscopies. Past Anesthesia/Blood Transfusion Reactions: No Reported Reaction Past Psychological History: No Psychological Hx Reported Smoking Status: Never smoker Past Alcohol Use History: None Reported Past Drug Use History: None Reported - Past Family History Father Family Medical History: Myocardial Infarction ([place]) Additional Family Medical History / Comment(s): Father of a [place] at the age of 66yrs. Mother Additional Family Medical History / Comment(s): Mother of heart problems at the age of 81 yrs. General Exam Limitations: no limitations General appearance: alert, in no apparent distress Head exam: Present: atraumatic, normocephalic Eye exam: Present: normal appearance. Absent: scleral icterus, conjunctival injection ENT exam: Present: normal oropharynx Neck exam: Present: normal inspection Respiratory exam: Present: normal lung sounds bilaterally. Absent: respiratory distress, wheezes, rales, rhonchi, stridor, accessory muscle use Cardiovascular Exam: Present: regular rate, normal rhythm, normal heart sounds. Absent: systolic murmur, diastolic murmur, rubs, gallop GI/Abdominal exam: Present: soft. Absent: distended, tenderness, guarding, rebound, rigid, mass Extremities exam: Present: normal inspection, normal capillary refill. Absent: pedal edema, calf tenderness Back exam: Present: normal inspection. Absent: CVA tenderness (R), CVA tenderness (L) Neurological exam: Present: alert Skin exam: Present: warm, dry, intact, normal color. Absent: rash Course Vital Signs 07/30/23 07/30/23 07/30/23 21:20 22:36 23:55 Temperature 98.1 F Pulse Rate 58 L 43 L 49 L Respiratory 20 27 H 29 H Rate Blood Pressure 143/83 143/83 148/93 O2 Sat by Pulse 96 96 98 Oximetry 07/30/23 07/31/23 23:56 01:32 Temperature Pulse Rate 55 L Respiratory 26 H 20 Rate Blood Pressure 162/99 O2 Sat by Pulse 96 Oximetry Medical Decision Making - Medical Decision Making The patient had chest x-ray which I interpreted as negative for acute infiltrate or pneumothorax. There is cardiomegaly, possible early congestive heart failure Was pt. sent in by a medical professional or institution (, PA, CHIEF SUSTAINABILITY OFFICER, urgent care, hospital, or alf...) When possible be specific @ -[No] Did you speak to anyone other than the patient for history (EMS, parent, family, police, friend...)? What history was obtained from this source @ -[No] Did you review nursing and triage notes (agree or disagree)? Why? @ -[I reviewed and agree with nursing and triage notes] Were old charts reviewed (outside hosp., previous admission, EMS record, old EKG, old radiological studies, urgent care reports/EKG's, alf records)? Report findings @ -[No old charts were reviewed] Differential Diagnosis (chest pain, altered mental status, abdominal pain women, abdominal pain men, vaginal bleeding, weakness, fever, dyspnea, syncope, headache, dizziness, GI bleed, back pain, seizure, CVA, palpatations, mental health, musculoskeletal)? @ -[Differential Dyspnea: Coronary syndrome, arrhythmia, tamponade, asthma, COPD, pulmonary embolism, pneumonia, pneumothorax, pulmonary effusion, anaphylaxis, diabetic ketoacidosis, flailed chest, pulmonary contusion, diaphragmatic rupture, anemia, neuromuscular, this is not meant to be an all-inclusive list. EKG interpreted by me (3pts min.). @ -[I interpreted as above] X-rays interpreted by me (1pt min.). @ -[I interpreted as above CT interpreted by me (1pt min.). @ -[None done] U/S interpreted by me (1pt. min.). @ -[None done] What testing was considered but not performed or refused? (CT, X-rays, U/S, labs)? Why? @ -[None] What meds were considered but not given or refused? Why? @ -[None] Did you discuss the management of the patient with other professionals (professionals i.e. Dr., PA, CHIEF SUSTAINABILITY OFFICER, lab, RT, psych nurse, social service manager, generator mechanic, teacher, state patrol officer, case finishing machine adjuster)? Give summary @ -[Case discussed with admitting physician and treatment recommendations incorporated Was smoking cessation discussed for >3mins.? @ -[No] Was critical care preformed (if so, how long)? @ -[No] Were there social determinants of health that impacted care today? How? (Homelessness, low income, unemployed, alcoholism, drug addiction, transportation, low edu. Level, literacy, decrease access to med. care, fci, rehab)? @ -[No] Was there de-escalation of care discussed even if they declined (Discuss DNR or withdrawal of care, Hospice)? DNR status @ -[No] What co-morbidities impacted this encounter? (DM, HTN, Smoking, COPD, CAD, Cancer, CVA, ARF, Chemo, Hep., AIDS, mental health diagnosis, sleep apnea, morbid obesity)? @ -[None] Was patient admitted / discharged? Hospital course, mention meds given and route, prescriptions, significant lab abnormalities, going to OR and other pertinent info. @ -[Patient is an 83-year-old man presenting here with dyspnea and clinically appears in congestive heart failure. The patient will be admitted to have further cardiology evaluation and also treatment. Undiagnosed new problem with uncertain prognosis? @ -[No] Drug Therapy requiring intensive monitoring for toxicity (Heparin, Nitro, Insulin, Cardizem)? @ -[No] Were any procedures done? @ -[No] Diagnosis/symptom? @ -[Acute dyspnea Acute exacerbation of congestive heart failure Acute, or Chronic, or Acute on Chronic? @ -[Acute on chronic Uncomplicated (without systemic symptoms) or Complicated (systemic symptoms)? @ -[Complicated by dyspnea Side effects of treatment? @ -[No] Exacerbation, Progression, or Severe Exacerbation? @ -[Exacerbation of heart failure Poses a threat to life or bodily function? How? (Chest pain, [place], [place], pneumonia, PE, COPD, DKA, ARF, appy, cholecystitis, CVA, Diverticulitis, Homicidal, Suicidal, threat to staff... and all critical care pts) @ -[Yes - Lab Data Result diagrams: 08/01/23 08:35 08/03/23 08:37 Lab Results 07/30/23 07/30/23 07/30/23 Range/Units 21:33 21:33 21:33 WBC 4.3 (3.8-10.6) k/uL RBC 3.79 L (4.30-5.90) m/uL Hgb 11.9 L (13.0-17.5) gm/dL Hct 36.8 L (39.0-53.0) % MCV 97.2 (80.0-100.0) fL MCH 31.3 (25.0-35.0) pg MCHC 32.2 (31.0-37.0) g/dL RDW 13.8 (11.5-15.5) % Plt Count 181 (150-450) k/uL MPV 7.2 Neutrophils % 61 % Lymphocytes % 27 % Monocytes % 6 % Eosinophils % 3 % Basophils % 1 % Neutrophils # 2.6 (1.3-7.7) k/uL Lymphocytes # 1.2 (1.0-4.8) k/uL Monocytes # 0.3 (0-1.0) k/uL Eosinophils # 0.1 (0-0.7) k/uL Basophils # 0.0 (0-0.2) k/uL PT 18.0 H (10.0-12.5) sec INR 1.8 H (<1.2) APTT 40.3 H (22.0-30.0) sec D-Dimer 0.21 (<0.60) mg/L FEU Sodium 141 (137-145) mmol/L Potassium 4.5 (3.5-5.1) mmol/L Chloride 113 H (98-107) mmol/L Carbon Dioxide 22 (22-30) mmol/L Anion Gap 6 mmol/L BUN 28 H (9-20) mg/dL Creatinine 1.28 H (0.66-1.25) mg/dL Est GFR (CKD-EPI)AfAm 60 (>60 ml/min/1.73 sqM) Est GFR (CKD-EPI)NonAf 52 (>60 ml/min/1.73 sqM) Glucose 106 H (74-99) mg/dL Plasma Lactic Acid Caleb (0.7-2.0) mmol/L Calcium 8.2 L (8.4-10.2) mg/dL Magnesium 1.9 (1.6-2.3) mg/dL Total Bilirubin 0.7 (0.2-1.3) mg/dL AST 24 (17-59) U/L ALT 36 (4-49) U/L Alkaline Phosphatase 76 (38-126) U/L Troponin I (0.000-0.034) ng/mL NT-Pro-B Natriuret Pep 5670 pg/mL Total Protein 6.3 (6.3-8.2) g/dL Albumin 3.4 L (3.5-5.0) g/dL Influenza Type A (PCR) (Not Detectd) Influenza Type B (PCR) (Not Detectd) RSV (PCR) (Not Detectd) SARS-CoV-2 (PCR) (Not Detectd) 07/30/23 07/30/23 07/30/23 Range/Units 21:33 21:33 21:43 WBC (3.8-10.6) k/uL RBC (4.30-5.90) m/uL Hgb (13.0-17.5) gm/dL Hct (39.0-53.0) % MCV (80.0-100.0) fL MCH (25.0-35.0) pg MCHC (31.0-37.0) g/dL RDW (11.5-15.5) % Plt Count (150-450) k/uL MPV Neutrophils % % Lymphocytes % % Monocytes % % Eosinophils % % Basophils % % Neutrophils # (1.3-7.7) k/uL Lymphocytes # (1.0-4.8) k/uL Monocytes # (0-1.0) k/uL Eosinophils # (0-0.7) k/uL Basophils # (0-0.2) k/uL PT (10.0-12.5) sec INR (<1.2) APTT (22.0-30.0) sec D-Dimer (<0.60) mg/L FEU Sodium (137-145) mmol/L Potassium (3.5-5.1) mmol/L Chloride (98-107) mmol/L Carbon Dioxide (22-30) mmol/L Anion Gap mmol/L BUN (9-20) mg/dL Creatinine (0.66-1.25) mg/dL Est GFR (CKD-EPI)AfAm (>60 ml/min/1.73 sqM) Est GFR (CKD-EPI)NonAf (>60 ml/min/1.73 sqM) Glucose (74-99) mg/dL Plasma Lactic Acid Caleb 0.9 (0.7-2.0) mmol/L Calcium (8.4-10.2) mg/dL Magnesium (1.6-2.3) mg/dL Total Bilirubin (0.2-1.3) mg/dL AST (17-59) U/L ALT (4-49) U/L Alkaline Phosphatase (38-126) U/L Troponin I <0.012 (0.000-0.034) ng/mL NT-Pro-B Natriuret Pep pg/mL Total Protein (6.3-8.2) g/dL Albumin (3.5-5.0) g/dL Influenza Type A (PCR) Not Detected (Not Detectd) Influenza Type B (PCR) Not Detected (Not Detectd) RSV (PCR) Not Detected (Not Detectd) SARS-CoV-2 (PCR) Not Detected (Not Detectd) - EKG Data -: EKG Interpreted by De EKG shows normal: intervals (Normal), QRS complexes (Q waves in leads III, aVF, V1 through V4, suggestive of old inferior/anteroseptal [place]), ST-T waves Rate: bradycardia (Rate 52 bpm) Interpretation: other (Rhythm appears to be atrial fibrillation with bradycardia rate) Disposition Clinical Impression: CHF (congestive heart failure) Disposition: ADMITTED IP TO THIS HOSP Condition: Fair
[2023-07-30 21:54] LABS: Basophils % (A) 1 %; Eosinophils # (A) 0.1 k/uL (0-0.7); Eosinophils % (A) 3 %; HCT 36.8 % (39.0-53.0); HGB 11.9 gm/dL (13.0-17.5); Lymphocytes # (A) 1.2 k/uL (1.0-4.8); Lymphocytes % (A) 27 %; MCH 31.3 pg (25.0-35.0); MCHC 32.2 g/dL (31.0-37.0); MCV 97.2 fL (80.0-100.0); Mean Platelet Volume 7.2; Monocytes # (A) 0.3 k/uL (0-1.0); Monocytes % (A) 6 %; Neutrophils # (A) 2.6 k/uL (1.3-7.7); Neutrophils % (A) 61 %; Platelet Count 181 k/uL (150-450); RBC 3.79 m/uL (4.30-5.90); RDW 13.8 % (11.5-15.5); WBC 4.3 k/uL (3.8-10.6)
[2023-07-30 22:11] LABS: ALT 36 U/L (4-49); AST 24 U/L (17-59); African American GFR (CKD) 60 (>60 ml/min/1.73 sqM); Albumin 3.4 g/dL (3.5-5.0); Alkaline Phosphatase 76 U/L (38-126); Anion Gap 6 mmol/L; Blood Urea Nitrogen 28 mg/dL (9-20); Calcium 8.2 mg/dL (8.4-10.2); Carbon Dioxide 22 mmol/L (22-30); Chloride 113 mmol/L (98-107); Glucose 106 mg/dL (74-99); Magnesium 1.9 mg/dL (1.6-2.3); Non-African American GFR(CKD) 52 (>60 ml/min/1.73 sqM); Potassium 4.5 mmol/L (3.5-5.1); Sodium 141 mmol/L (137-145); Total Bilirubin 0.7 mg/dL (0.2-1.3); Total Protein 6.3 g/dL (6.3-8.2)
[2023-07-30 22:13] LABS: INR 1.8 (<1.2); Partial Thromboplastin Time 40.3 sec (22.0-30.0)
[2023-07-30 22:19] LABS: NT-Pro-B-Type Natriuretic Pept 5670 pg/mL
[2023-07-30] MEDS: NITROGLYCERIN OINT 1 INCH/GM PACKET TOPICAL STA (23:01)
[2023-07-30] MEDS: FUROSEMIDE 10 MG/ML 4 ML VIAL IV STA (23:11)
--- NOTE | 2023-07-30 23:15 | XR ---
EXAMINATION TYPE: XR chest 2V DATE OF EXAM: 07/30/2023 9:48 PM CLINICAL INDICATION:Male, 83 years old with history of difficulty breathing; [facility] COMPARISON: 03/28/2023 TECHNIQUE: XR chest 2V. Frontal and lateral views of the chest.. FINDINGS: Lines/Tubes/Devices: EKG leads overlie the chest. No indwelling lines are seen. Heart/mediastinum: Heart appears mildly to moderately enlarged. Mildly tortuous partially calcified aorta. Pulmonary vascularity: Not increased, Lungs/Pleura: Hyperinflated lungs with chronic interstitial coarsening, correlate for possible COPD. Mild stranding at the right lung base with mild blunting of the costophrenic angle. Left costophrenic angle is relatively sharp. No focal consolidation or pneumothorax. Musculoskeletal: No acute fracture visualized. Degenerative changes of the thoracic spine with mild increased kyphosis. Other findings: Clips in the right upper quadrant may be from cholecystectomy. IMPRESSION: 1. Cardiomegaly. 2. Small right pleural effusion with mild basilar atelectasis or infiltrate.
[2023-07-30] MEDS: FUROSEMIDE 10 MG/ML 4 ML VIAL IV SCH (23:37)
--- NOTE | 2023-07-31 01:17 | P.HPIM ---
History of Present Illness H&P Date: 07/31/23 Patient is a 83-year-old male with a PMH of A-fib on Xarelto, hypertension, hyperlipidemia, CKD stage IIIa, who presents to the emergency room with complaints of shortness of breath and lower extremity edema. The patient reports that he contracted COVID in April of this year and since then has not been his old self. Reports that over the past few weeks however, he has developed quickly worsening lower extremity edema and shortness of breath with exercise tolerance now limited to just a few steps. He normally was walking 3 miles a day for most of his life up until just a few weeks ago. He denied experiencing exertional chest discomfort, nausea, vomiting, diaphoresis, orthopnea, PND, or dizziness. Also denied fever, chills, cough, abdominal pain, diarrhea. EKG in the emergency room revealed A-fib with SVR at 52 bpm with poor R wave progression and diffuse T wave flattening as reviewed by me. Chest x-ray revealed cardiomegaly with a small right-sided pleural effusion with bibasilar atelectasis. Laboratory evaluation was remarkable for proBNP 5670, troponin less than 0.012, BUN 28, creatinine 1.28 (similar to baseline), and D-dimer 0.21. ED documentation reviewed and case discussed with ED provider. Review of systems: Pertinent positives and negatives as discussed in HPI, a complete review of systems was performed and all other systems are negative. Physical examination: Vital signs reviewed General: non toxic, no distress, appears at stated age, normal weight Derm: no unusual rashes/lesions, warm Head: atraumatic, normocephalic, symmetric Eyes: EOMI, no lid lag, anicteric sclera, pupils equal round reactive to light ENT: Nose and ears atraumatic Neck: No cervical lymphadenopathy, trachea midline, supple Mouth: no lip lesion, mucus membranes moist Cardiovascular: S1S2 reg, no murmur, positive dorsalis pedis pulse bilateral, 1+ bilateral lower extremity pitting edema Lungs: Mild bibasilar rales without wheezing or rhonchi, no accessory muscle use Abdominal: soft, nontender to palpation, no guarding Ext: muscle strength 5 out of 5 in all 4 extremities grossly, no gross muscle atrophy, no contractures, Neuro: CN II-XI grossly intact, no gross focal neuro deficits Psych: Alert, oriented, appropriate affect Assessment: Fluid overload, suspect new onset CHF exacerbation Chronic conditions: A-fib, hypertension, hyperlipidemia, CKD stage III AA Imaging: EKG in the emergency room revealed A-fib with SVR at 52 bpm with poor R wave progression and diffuse T wave flattening as reviewed by me. Chest x-ray revealed cardiomegaly with a small right-sided pleural effusion with bibasilar atelectasis. Data Review: Laboratory evaluation was remarkable for proBNP 5670, troponin less than 0.012, BUN 28, creatinine 1.28 (similar to baseline), and D-dimer 0.21. Plan: Continue with Lasix 40 mg IV every 12 hourly Intake and output Daily weights Fluid restriction Cardiology consulted Obtain echocardiogram Continue remaining home medications including Xarelto, lisinopril, Lipitor, Lopressor DVT prophylaxis: Xarelto The patient is admitted with an anticipated greater than 2 midnight stay for evaluation of CHF exacerbation CODE STATUS: Full Code Discussed with: Patient Anticipated discharge place: Home Past Medical History Past Medical History: Atrial Fibrillation, Hyperlipidemia, Hypertension Additional Past Medical History / Comment(s): Pt states in January 2011 he had a cardioversion which was successful and to his knowledge he has not had an irregular heart beat until today. Other HX: palpitations History of Any Multi-Drug Resistant Organisms: None Reported Past Surgical History: Back Surgery, Cholecystectomy, Hernia Repair Additional Past Surgical History / Comment(s): Low back surgery for blood vessel that ruptured, bilateral inguinal hernias, 01/2011 cardioversion, colonoscopies. Past Anesthesia/Blood Transfusion Reactions: No Reported Reaction Past Psychological History: No Psychological Hx Reported Smoking Status: Never smoker Past Alcohol Use History: None Reported Past Drug Use History: None Reported - Past Family History Father Family Medical History: Myocardial Infarction ([place]) Additional Family Medical History / Comment(s): Father of a [place] at the age of 66yrs. Mother Additional Family Medical History / Comment(s): Mother of heart problems at the age of 81 yrs. Medications and Allergies Home Medications Medication Instructions Recorded Confirmed Type Atorvastatin [Lipitor] 20 mg PO HS 03/08/16 03/28/23 History Dronedarone [Multaq] 400 mg PO AC-BID #60 tab 03/10/16 03/28/23 Rx Metoprolol Tartrate [Lopressor] 25 mg PO BID #60 tab 03/10/16 03/28/23 Rx lisinopriL [Zestril] 20 mg PO HS 01/09/18 03/28/23 History Doxycycline Hyclate 100 mg PO BID 03/28/23 03/28/23 History Rivaroxaban [Xarelto] 20 mg PO HS 03/28/23 03/28/23 History Vitamin D3/Vitamin K2 (Mk4) 1 tab PO DAILY 03/28/23 03/28/23 History [Vitamin K2 Plus D3 Tablet] allopurinoL 50 mg PO HS 03/28/23 03/28/23 History calcitrioL 0.5 mcg PO TOLBERT 03/28/23 03/28/23 History Allergies Allergy/AdvReac Type Severity Reaction Status Date / Time No Known Allergies Allergy Verified 03/28/23 13:46 Physical Exam Vitals: Vital Signs Temp Pulse Resp BP Pulse Ox 07/30/23 23:56 26 H 07/30/23 23:55 49 L 29 H 148/93 98 07/30/23 22:36 43 L 27 H 143/83 96 07/30/23 21:20 98.1 F 58 L 20 143/83 96 Intake and Output 07/30/23 07/30/23 07/31/23 14:59 22:59 06:59 Other: Weight 78.018 kg Results CBC & Chem 7: 07/30/23 21:33 07/30/23 21:33 Labs: Abnormal Lab Results - Last 24 Hours (Table) 07/30/23 07/30/23 07/30/23 Range/Units 21:33 21:33 21:33 RBC 3.79 L (4.30-5.90) m/uL Hgb 11.9 L (13.0-17.5) gm/dL Hct 36.8 L (39.0-53.0) % PT 18.0 H (10.0-12.5) sec INR 1.8 H (<1.2) APTT 40.3 H (22.0-30.0) sec Chloride 113 H (98-107) mmol/L BUN 28 H (9-20) mg/dL Creatinine 1.28 H (0.66-1.25) mg/dL Glucose 106 H (74-99) mg/dL Calcium 8.2 L (8.4-10.2) mg/dL Albumin 3.4 L (3.5-5.0) g/dL
[2023-07-31 06:29] LABS: HCT 36.5 % (39.0-53.0); HGB 11.8 gm/dL (13.0-17.5); MCH 31.8 pg (25.0-35.0); MCHC 32.5 g/dL (31.0-37.0); MCV 97.9 fL (80.0-100.0); Mean Platelet Volume 7.2; Platelet Count 167 k/uL (150-450); RBC 3.72 m/uL (4.30-5.90); RDW 13.9 % (11.5-15.5)
[2023-07-31 06:39] LABS: African American GFR (CKD) 60 (>60 ml/min/1.73 sqM); Anion Gap 7 mmol/L; Blood Urea Nitrogen 25 mg/dL (9-20); Calcium 8.7 mg/dL (8.4-10.2); Carbon Dioxide 25 mmol/L (22-30); Chloride 109 mmol/L (98-107); Glucose 91 mg/dL (74-99); Non-African American GFR(CKD) 52 (>60 ml/min/1.73 sqM); Potassium 3.7 mmol/L (3.5-5.1); Sodium 141 mmol/L (137-145)
[2023-07-31] MEDS: DRONEDARONE 400 MG TAB PO SCH (08:26)
[2023-07-31] MEDS: METOPROLOL TARTRATE 25 MG TAB PO SCH (08:30)
[2023-07-31] MEDS: FUROSEMIDE 10 MG/ML 4 ML VIAL IV SCH (08:42)
[2023-07-31] MEDS ORDERED: NON FORMULARY DRUG (Doxycycline Hyclate [Doxycycline Hyclate] 100 MG Tablet) PO SCH (09:00)
--- NOTE | 2023-07-31 09:27 | P.CRDCN ---
History of Present Illness History of present illness: HISTORY OF PRESENT ILLNESS: This is a 83-year-old male with a past medical history significant for paroxysmal atrial fibrillation, hypertension, hyperlipidemia, valvular heart disease, and chronic kidney disease. Patient follows in the office with Dr. Stapleton. We have been asked to see the patient in consultation for congestive heart failure. Patient examined at the bedside. Patient presented to the hospital with a chief complaint of shortness of breath. He states about 2 days ago he began to have shortness of breath and wheezing at home. He also reports having a nonproductive cough. He states he has had lower extremity edema for the past 3 weeks which is new for him. He denies any history of congestive heart failure. The patient states he had COVID in March 2023 and states he feels like he has not fully recovered. It is noted that the patient had an abnormal stress test revealing at least a moderate area of ischemia inferiorly. When he saw Dr. Stapleton in the office last month he stated that he felt well at that time and declined to undergo heart catheterization. Heart catheterization was again discussed with the patient today who appears to be more willing to proceed with cardiac catheterization. DIAGNOSTICS: - EKG reveals A-fib with slow ventricular rate - Chest xray cardiomegaly. Small right pleural effusion with mild basilar atelectasis or infiltrate - Laboratory data: WBC 5.0. Hemoglobin 11.8. Platelet count 167. D-dimer 0.21. Sodium 141. Potassium 3.7. BUN 25. Creatinine 1.29. Troponin negative x 1. proBNP 5670. - Current home cardiac medications include Lipitor 20 mg at night, Multaq 400 mg twice a day, metoprolol tartrate 25 mg twice a day, Xarelto 20 mg at night, lisinopril 10 mg daily. - Most recent echocardiogram obtained in February 2023 revealing normal EF, moderate AR, moderate MR, moderate TR, moderate pulmonary hypertension REVIEW OF SYSTEMS: At the time of my exam: CONSTITUTIONAL: Denies fever or chills. HEENT: Denies blurred vision, vision changes, or eye pain. Denies hemoptysis CARDIOVASCULAR: Denies chest pain. Denies orthopnea. Denies PND. Denies palpitations RESPIRATORY: Denies shortness of breath. GASTROINTESTINAL: Denies abdominal pain. Denies nausea or vomiting. HEMATOLOGIC: Denies bleeding disorders. GENITOURINARY: Denies any blood in urine. SKIN: Denies pruitis. Denies rash. PHYSICAL EXAM: VITAL SIGNS: Reviewed. GENERAL: Well-developed in no acute distress. HEENT: Head is normocephalic. Pupils are equal, round. Sclerae anicteric. Mucous membranes of the mouth are moist. Neck supple. No JVD or thyromegaly LUNGS: Respirations even and unlabored. Lungs diminished with expiratory wheezing HEART: Bradycardic. Irregular rate and rhythm. S1 and S2 heard. Systolic murmur noted ABDOMEN: Soft. Nondistended. Nontender. EXTREMITIES: Normal range of motion. No clubbing or cyanosis. Peripheral pulses intact. 2+ bilateral lower extremity edema NEUROLOGIC: Awake and alert. Oriented x 3. ASSESSMENT: Shortness of breath New onset heart failure, type unknown, echo pending, patient with previously preserved EF Recent abnormal Michelle scan revealing moderate inferior ischemia, February 2023, previously declining cardiac catheterization Paroxysmal atrial fibrillation with slow ventricular rate Hypertension Hyperlipidemia Valvular heart disease Chronic kidney disease PLAN: Obtain 2D echo to assess cardiac structure and function Discontinue Multaq Continue current dose of metoprolol. Hold for heart rate less than 50. Continue with increased dose of lisinopril secondary to elevated blood pressure Continue IV Lasix 40 mg every 12 hours Daily weights, accurate intake and output, and monitoring of kidney function Hold Xarelto tonight Patient previously declined to undergo cardiac cath but now seems more willing to undergo cath Will tentatively plan for cardiac catheterization tomorrow with Dr. Stapleton if patient is agreeable Further recommendations pending patient course Nurse practitioner note has been reviewed by physician. Signing provider agrees with the documented findings, assessment, and plan of care documented by EXCAVATOR OPERATOR as a scribe. Past Medical History Past Medical History: Atrial Fibrillation, Hyperlipidemia, Hypertension Additional Past Medical History / Comment(s): Pt states in January 2011 he had a cardioversion which was successful and to his knowledge he has not had an irregular heart beat until today. Other HX: palpitations History of Any Multi-Drug Resistant Organisms: None Reported Past Surgical History: Back Surgery, Cholecystectomy, Hernia Repair Additional Past Surgical History / Comment(s): Low back surgery for blood vessel that ruptured, bilateral inguinal hernias, 01/2011 cardioversion, colonoscopies. Past Anesthesia/Blood Transfusion Reactions: No Reported Reaction Past Psychological History: No Psychological Hx Reported Additional Psychological History / Comment(s): Pt resides with his spouse of 60 yrs. He is independent and cares for the home and his Smoking Status: Never smoker Past Alcohol Use History: None Reported Past Drug Use History: None Reported - Past Family History Father Family Medical History: Myocardial Infarction (DC) Additional Family Medical History / Comment(s): Father of a DC at the age of 66yrs. Mother Additional Family Medical History / Comment(s): Mother of heart problems at the age of 81 yrs. Medications and Allergies Home Medications Medication Instructions Recorded Confirmed Type Atorvastatin [Lipitor] 20 mg PO HS 03/08/16 07/31/23 History Dronedarone [Multaq] 400 mg PO AC-BID #60 tab 03/10/16 07/31/23 Rx Metoprolol Tartrate [Lopressor] 25 mg PO BID #60 tab 03/10/16 07/31/23 Rx Rivaroxaban [Xarelto] 20 mg PO HS 03/28/23 07/31/23 History Vitamin D3/Vitamin K2 (Mk4) 1 tab PO DAILY 03/28/23 07/31/23 History [Vitamin K2 Plus D3 Tablet] allopurinoL 50 mg PO HS 03/28/23 07/31/23 History calcitrioL 0.5 mcg PO TOLBERT 03/28/23 07/31/23 History Tamsulosin HCl [Flomax] 0.4 mg PO HS 07/31/23 07/31/23 History lisinopriL [Zestril] 10 mg PO DAILY 07/31/23 07/31/23 History Allergies Allergy/AdvReac Type Severity Reaction Status Date / Time No Known Allergies Allergy Verified 07/31/23 08:54 Physical Exam Vitals: Vital Signs Temp Pulse Pulse Resp BP BP Pulse Ox 07/31/23 03:55 97.7 F 57 L 18 164/82 96 07/31/23 01:38 97.6 F 59 L 20 153/77 98 07/31/23 01:32 55 L 20 162/99 96 07/30/23 23:56 26 H 07/30/23 23:55 49 L 29 H 148/93 98 07/30/23 22:36 43 L 27 H 143/83 96 07/30/23 21:20 98.1 F 58 L 20 143/83 96 Intake and Output 07/30/23 07/31/23 07/31/23 22:59 06:59 14:59 Other: Weight 78.018 kg 78.018 kg Results 07/31/23 05:56 07/31/23 05:56 Cardiac Enzymes 07/30/23 07/30/23 Range/Units 21:33 21:33 AST 24 (17-59) U/L Troponin I <0.012 (0.000-0.034) ng/mL Coagulation 07/30/23 Range/Units 21:33 PT 18.0 H (10.0-12.5) sec APTT 40.3 H (22.0-30.0) sec CBC 07/30/23 07/31/23 Range/Units 21:33 05:56 WBC 4.3 5.0 (3.8-10.6) k/uL RBC 3.79 L 3.72 L (4.30-5.90) m/uL Hgb 11.9 L 11.8 L (13.0-17.5) gm/dL Hct 36.8 L 36.5 L (39.0-53.0) % Plt Count 181 167 (150-450) k/uL Comprehensive Metabolic Panel 07/30/23 07/31/23 Range/Units 21:33 05:56 Sodium 141 141 (137-145) mmol/L Potassium 4.5 3.7 (3.5-5.1) mmol/L Chloride 113 H 109 H (98-107) mmol/L Carbon Dioxide 22 25 (22-30) mmol/L BUN 28 H 25 H (9-20) mg/dL Creatinine 1.28 H 1.29 H (0.66-1.25) mg/dL Glucose 106 H 91 (74-99) mg/dL Calcium 8.2 L 8.7 (8.4-10.2) mg/dL AST 24 (17-59) U/L ALT 36 (4-49) U/L Alkaline Phosphatase 76 (38-126) U/L Total Protein 6.3 (6.3-8.2) g/dL Albumin 3.4 L (3.5-5.0) g/dL Current Medications Generic Name Dose Route Start Last Admin Trade Name Freq PRN Reason Stop Dose Admin Atorvastatin Calcium 20 mg 07/31/23 21:00 Atorvastatin 20 Mg Tab PO HS COOKIE Calcitriol 0.5 mcg 07/31/23 09:00 Calcitriol 0.25 Mcg Cap PO TOLBERT COOKIE Dronedarone 400 mg 07/31/23 07:30 Dronedarone 400 Mg Tab PO AC-BID COOKIE Furosemide 40 mg 07/30/23 23:30 07/30/23 23:37 Furosemide 10 Mg/Ml 4 Ml Vial IV Not Given Q12H COOKIE Lisinopril 20 mg 07/31/23 21:00 Lisinopril 20 Mg Tab PO HS COOKIE Metoprolol Tartrate 25 mg 07/31/23 09:00 Metoprolol Tartrate 25 Mg Tab PO BID COOKIE Rivaroxaban 20 mg 07/31/23 21:00 Rivaroxaban 20 Mg Tab PO HS COOKIE Protocol Sodium Chloride 10 ml 07/31/23 09:00 Sodium Chloride 0.9% Flush 10 Ml Syringe IV BID [facility] Intake and Output 07/30/23 07/31/23 07/31/23 22:59 06:59 14:59 Other: Weight 78.018 kg 78.018 kg 07/31/23 05:56 07/31/23 05:56
[2023-07-31] MEDS: lisinopriL 10 MG TAB PO SCH (14:08)
--- NOTE | 2023-07-31 19:04 | P.PN ---
Progress Note - Text Progress Note Date: 07/31/23 Hospitalist Interval Note Patient seen and examined at bedside. He is not having any chest pain. He complains of some shortness of breath and dizziness. Vital signs reviewed General: Non toxic, no distress, appears at stated age Derm: Warm, dry Cardiovascular: S1S2 reg, no murmur, bilateral lower extremity edema, Lungs: Rhonchi bilateral, no accessory muscle use Abdominal: Soft, nontender to palpation, no guarding, no appreciable organomegaly Ext: No gross muscle atrophy, no edema, no contractures Neuro: CN II-XI grossly intact, no focal neuro deficits Psych: Alert, oriented, appropriate affect Assessment/Plan: 1. New onset CHF Known abnormal stress test -Plan is for possible cardiac cath in a.m. per patient and cardiology note review -Continue with Lasix 40 mg IV every 12 hours, lisinopril 10 mg daily, metoprolol 25 mg twice daily -Lipitor 40 mg at night -Await further cardiology recommendations This is an update note for patient , for full note on 07/31/2023 see history and physical. There is no charge associated with this note.
[2023-07-31] MEDS: hydrALAZINE HCL 25 MG TAB PO STA (20:02)
[2023-07-31] MEDS: ATORVASTATIN 40 MG TAB PO SCH (20:03)
[2023-07-31] MEDS: allopurinoL 100 MG TAB PO SCH (20:03)
[2023-07-31] MEDS: TAMSULOSIN 0.4 MG CAP.ER.24H PO SCH (20:03)
[2023-07-31] MEDS ORDERED: ATORVASTATIN 20 MG TAB PO SCH (21:00)
[2023-07-31] MEDS ORDERED: RIVAROXABAN 15 MG TAB PO SCH (21:00)
[2023-07-31] MEDS ORDERED: lisinopriL 10 MG TAB PO SCH (21:00)
[2023-07-31] MEDS ORDERED: lisinopriL 20 MG TAB PO SCH (21:00)
[2023-07-31] MEDS: hydrALAZINE HCL 25 MG TAB PO SCH (22:47)
[2023-08-01 09:21] LABS: HCT 45.4 % (39.0-53.0); HGB 14.4 gm/dL (13.0-17.5); MCH 30.5 pg (25.0-35.0); MCHC 31.6 g/dL (31.0-37.0); MCV 96.3 fL (80.0-100.0); Mean Platelet Volume 7.2; Platelet Count 213 k/uL (150-450); RBC 4.71 m/uL (4.30-5.90); RDW 13.6 % (11.5-15.5); WBC 5.3 k/uL (3.8-10.6)
[2023-08-01 09:31] LABS: African American GFR (CKD) 55 (>60 ml/min/1.73 sqM); Anion Gap 8 mmol/L; Blood Urea Nitrogen 27 mg/dL (9-20); Calcium 9.1 mg/dL (8.4-10.2); Carbon Dioxide 30 mmol/L (22-30); Chloride 101 mmol/L (98-107); Glucose 97 mg/dL (74-99); Magnesium 1.9 mg/dL (1.6-2.3); Non-African American GFR(CKD) 48 (>60 ml/min/1.73 sqM); Potassium 3.4 mmol/L (3.5-5.1); Sodium 139 mmol/L (137-145)
[2023-08-01] MEDS: POTASSIUM CHLORIDE ER 20 MEQ TAB.ER PO STA (09:52)
[2023-08-01] MEDS: SODIUM CHLORIDE 0.9% 1,000 ML IV SCH (09:52)
--- NOTE | 2023-08-01 12:11 | CA ---
Transthoracic Echo Report Name: Anoop De La Cruz Age: 83 Gender: M : 1940 Exam Date: 08/01/2023 09:12 Exam Location: [place] [facility] Ht (in): 69 Wt (lb): 172 Ordering Physician: Luis Rondon MD Attending/Referring Phys: Applied Behavior Science Specialist Phoebe Procedure CPT: Indications: Heart failure Cardiac Hx: Technical Quality: Good Contrast 1: Total Dose (mL): Contrast 2: Total Dose (mL): MEASUREMENTS (Male / Female) Normal Values 2D ECHO LV Diastolic Diameter PLAX 4.5 cm 4.2 - 5.9 / 3.9 - 5.3 cm LV Systolic Diameter PLAX 3.4 cm IVS Diastolic Thickness 1.0 cm 0.6 - 1.0 / 0.6 - 0.9 cm LVPW Diastolic Thickness 1.0 cm 0.6 - 1.0 / 0.6 - 0.9 cm LV Relative Wall Thickness 0.4 RV Internal Dim ED PLAX 3.2 cm LVOT Diameter 2.3 cm Aortic Root Diameter 3.4 cm LV Diastolic Volume MOD BP 102.8 cm??? 67 - 155 / 56 - 104 cm??? LV Systolic Volume MOD BP 42.9 cm??? 22 - 58 / 19 - 49 cm??? LV Ejection Fraction MOD BP 58.2 % >= 55 % LV Cardiac Index MOD BP 2108.6 cm???/min???m??? LV Diastolic Volume MOD 4C 112.4 cm??? LV Systolic Volume MOD 4C 46.8 cm??? LV Ejection Fraction MOD 4C 58.4 % LV Cardiac Index MOD 4C 2313.3 cm???/min???m??? LV Diastolic Length 4C 7.9 cm LV Systolic Length 4C 7.0 cm LV Diastolic Volume MOD 2C 93.9 cm??? LV Systolic Volume MOD 2C 38.9 cm??? LV Ejection Fraction MOD 2C 58.5 % LV Cardiac Index MOD 2C 1934.3 cm???/min???m??? LV Diastolic Length 2C 8.0 cm LV Systolic Length 2C 7.2 cm Ascending Aorta Diameter 3.6 cm DOPPLER AV Peak Velocity 113.1 cm/s AV Peak Gradient 5.1 mmHg AV Mean Velocity 77.8 cm/s AV Mean Gradient 2.8 mmHg AV Velocity Time Integral 19.4 cm LVOT Peak Velocity 69.3 cm/s LVOT Peak Gradient 1.9 mmHg LVOT Velocity Time Integral 12.3 cm LVOT Stroke Volume 52.3 cm??? LVOT Stroke Volume Index 27.0 ml/m??? LVOT Cardiac Index 1841.2 cm???/min???m??? AV Area Cont Eq vti 2.7 cm??? AV Area Cont Eq pk 2.6 cm??? TR Peak Velocity 214.7 cm/s TR Peak Gradient 18.4 mmHg PV Peak Velocity 86.1 cm/s PV Peak Gradient 3.0 mmHg FINDINGS Left Ventricle Left ventricular ejection fraction is estimated at 55-60 %. Left ventricular cavity size normal. Left ventricular wall thickness normal. No obvious regional wall motion abnormalities. Right Ventricle Normal right ventricular size and function. Right ventricular systolic pressure within normal limits. Right Atrium Normal right atrial size. Left Atrium Severe left atrial dilatation. Mitral Valve Structurally normal mitral valve. No evidence for mitral valve prolapse. No mitral stenosis. Trace mitral regurgitation. Aortic Valve Trileaflet aortic valve. No aortic stenosis. Mild aortic regurgitation. Tricuspid Valve Structurally normal tricuspid valve. No tricuspid prolapse. No tricuspid stenosis. Trace tricuspid regurgitation. Pulmonic Valve Structurally normal pulmonic valve. No pulmonic stenosis. Trace pulmonic regurgitation. Pericardium Echo free space anterior to the right ventricle likely represents a fat pad. Aorta Normal size aortic root and proximal ascending aorta. CONCLUSIONS Normal LV size and systolic function. No significant abnormality on the Doppler exam. No pericardial effusion. Previewed by: Dr. Mikael Cornell MD (Electronically Signed) Final Date: 01 August 2023 12:10
[2023-08-01 13:02] VITALS: BMI 23.8
--- NOTE | 2023-08-01 14:39 | P.PN ---
Subjective Progress Note Date: 08/01/23 HISTORY OF PRESENT ILLNESS: This is a 83-year-old male with a past medical history significant for paro xysmal atrial fibrillation, hypertension, hyperlipidemia, valvular heart disease, and chronic kidney disease. Patient follows in the office with Dr. Stapleton. We have been asked to see the patient in consultation for congestive heart failure. Patient examined at the bedside. Patient presented to the hospital with a chief complaint of shortness of breath. He states about 2 days ago he began to have shortness of breath and wheezing at home. He also reports having a nonproductive cough. He states he has had lower extremity edema for the past 3 weeks which is new for him. He denies any history of congestive heart failure. The patient states he had COVID in March 2023 and states he feels like he has not fully recovered. It is noted that the patient had an abnormal stress test revealing at least a moderate area of ischemia inferiorly. When he saw Dr. Stapleton in the office last month he stated that he felt well at that time and declined to undergo heart catheterization. Heart catheterization was again discussed with the patient today who appears to be more willing to proceed with cardiac catheterization. DIAGNOSTICS: - EKG reveals A-fib with slow ventricular rate - Chest xray cardiomegaly. Small right pleural effusion with mild basilar atelectasis or infiltrate - Laboratory data: WBC 5.0. Hemoglobin 11.8. Platelet count 167. D-dimer 0.21. Sodium 141. Potassium 3.7. BUN 25. Creatinine 1.29. Troponin negative x 1. proBNP 5670. - Current home cardiac medications include Lipitor 20 mg at night, Multaq 400 mg twice a day, metoprolol tartrate 25 mg twice a day, Xarelto 20 mg at night, lisinopril 10 mg daily. - Most recent echocardiogram obtained in February 2023 revealing normal EF, moderate AR, moderate MR, moderate TR, moderate pulmonary hypertension 07/31 Patient is seen today in follow-up. He has been maintained on IV Lasix 40 mg every 12 hours. He has a negative fluid balance and weight is down 3-1/2 kg. Patient complains of a cough. Blood pressure 118/73, heart rate 61, pulse ox 97% on room air. Repeat blood work reveals normal CBC. Potassium is 3.4 and has been replaced. BUN 27 creatinine 1.38. Patient was tentatively scheduled for cardiac catheterization but due to increase in creatinine, will plan to start IV fluids, repeat blood work in the morning and rescheduled for tomorrow. Echocardiogram reveals EF of 55 to 60%. No significant abnormality. No pericardial effusion. PHYSICAL EXAM: VITAL SIGNS: Reviewed. GENERAL: Well-developed in no acute distress. HEENT: Head is normocephalic. Pupils are equal, round. Sclerae anicteric. Mucous membranes of the mouth are moist. Neck supple. No JVD or thyromegaly LUNGS: Respirations even and unlabored. Lungs diminished with expiratory wheezing HEART: Bradycardic. Irregular rate and rhythm. S1 and S2 heard. Systolic murmur noted ABDOMEN: Soft. Nondistended. Nontender. EXTREMITIES: Normal range of motion. No clubbing or cyanosis. Peripheral pulses intact. 2+ bilateral lower extremity edema NEUROLOGIC: Awake and alert. Oriented x 3. ASSESSMENT: Shortness of breath New onset heart failure, diastolic Recent abnormal Michelle scan revealing moderate inferior ischemia, February 2023, previously declining cardiac catheterization Paroxysmal atrial fibrillation with slow ventricular rate Hypertension Hyperlipidemia Valvular heart disease Chronic kidney disease PLAN: Continue current dose of metoprolol. Hold for heart rate less than 50. Continue with increased dose of lisinopril secondary to elevated blood pressure Discontinue IV fluids Start patient on 0.9 normal saline at 50 cc/h Daily weights, accurate intake and output, and monitoring of kidney function Continue to hold Xarelto tonight Will tentatively plan for cardiac catheterization tomorrow with Dr. Stapleton if patient is agreeable Further recommendations pending patient course Nurse practitioner note has been reviewed by physician. Signing provider agrees with the documented findings, assessment, and plan of care documented by CIRCULAR RIPSAW OPERATOR as a scribe. Objective - Vital Signs Vital signs: Vital Signs Temp 98.1 F 08/01/23 11:20 Pulse 61 08/01/23 13:22 Resp 15 08/01/23 13:22 BP 118/73 08/01/23 11:20 Pulse Ox 97 08/01/23 11:20 FiO2 Intake & Output 07/31/23 08/01/23 08/01/23 18:59 06:59 18:59 Intake Total 898 10 240 Output Total 2350 1700 1150 Balance -1452 -1690 -910 Weight 73.4 kg 73.4 kg Intake: IV 10 Invasive Line 1 10 Oral 898 240 Output: Urine 2350 1700 1150 Other: # Voids 1 1 - Labs CBC & Chem 7: 08/01/23 08:35 08/01/23 08:35 Labs: Abnormal Lab Results - Last 24 Hours (Table) 08/01/23 Range/Units 08:35 Potassium 3.4 L (3.5-5.1) mmol/L BUN 27 H (9-20) mg/dL Creatinine 1.38 H (0.66-1.25) mg/dL
--- NOTE | 2023-08-01 17:15 | P.PN ---
Subjective Progress Note Date: 08/01/23 (delayed charting seen at 1145) Patient is a 83-year-old male with A-fib on Xarelto, hypertension, hyperlipidemia, and CKD stage IIIa, who presented to the emergency room with complaints of shortness of breath and lower extremity edema. In the emergency department he underwent an extensive evaluation. On arrival his vitals were remarkable for heart rate of 58. Laboratory evaluation was remarkable for proBNP 5670, troponin less than 0.012, BUN 28, creatinine 1.28 (similar to baseline), and D-dimer 0.21. EKG in the emergency room revealed A-fib with SVR at 52 bpm with poor R wave progression and diffuse T wave flattening. Chest x-ray revealed cardiomegaly with a small right-sided pleural effusion with bibasilar atelectasis. He was started on Lasix IV push and arrangements were made for a dmission. Cardiology was consulted noted that he had an abnormal stress test in the office in March and recommended cardiac catheterization. He is euvolemic by the morning of 07/31 but had slightly increasing creatinine and to prepare for cardiac cath he was started on gentle IV fluids. Patient seen and examined at bedside. He denies any chest pain or shortness of breath. He is breathing is much better. His edema has resolved. Vital signs reviewed General: Nontoxic, no distress, appears at stated age Cardiovascular: S1S2 reg, no murmur Lungs: CTA bilateral, no rhonchi, no rales, no accessory muscle use Abdominal: Soft, nontender to palpation, no guarding Ext: No gross muscle atrophy, no edema b/l lower extremities, no contractures Neuro: CN II-XI grossly intact, no focal neuro deficits Psych: Alert, oriented, appropriate affect Assessment/Plan: Acute exacerbation of diastolic congestive heart failure with preserved ejection fraction of 55 to 60% Hypertensive urgency Dyslipidemia Atrial fibrillation anticoagulated with Xarelto-currently on hold for cardiac catheterization Chronic kidney disease stage III AA -Abnormal Lexiscan in February 2023 -Lasix has been discontinued. Patient has been started on gentle fluids in preparation for possible cardiac cath in a.m. -Continue with metoprolol 25 mg oral twice daily, lisinopril 10 mg daily -Lipitor 40 mg daily -Cardiology note reviewed: Normal saline at 50 cc/h, heart cath in a.m. Increase dose of lisinopril. -Hydralazine added 07/31/2023 at 25 mg p.o. twice daily due to elevated blood pressures. Unable to increase beta-amisha due to heart rate and did not increase lisinopril secondary to underlying chronic kidney disease. Hypokalemia -Potassium chloride 20 mill equivalents oral x 10 Imaging: Echocardiogram with ejection fraction 55 to 60% Data Review: Labs reviewed from today include CBC and basic metabolic profile which are remarkable for potassium 3.4, BUN 27, creatinine 1.38 DVT prophylaxis: SCDs Anticipated discharge date: Pending Clinical Course Anticipated discharge place: Pending Clinical Course This dictation was prepared using [employer] voice recognition software. Though every attempt is made to correct errors during dictation some may still e xist. Objective - Vital Signs Vital signs: Vital Signs Temp 98.3 F 08/01/23 15:59 Pulse 60 08/01/23 15:59 Resp 16 08/01/23 15:59 BP 93/61 08/01/23 15:59 Pulse Ox 98 08/01/23 15:59 FiO2 Intake & Output 07/31/23 08/01/23 08/01/23 18:59 06:59 18:59 Intake Total 898 10 358 Output Total 2350 1700 1150 Balance -0822 -1690 -792 Weight 73.4 kg 73.4 kg Intake: IV 10 Invasive Line 1 10 Oral 898 358 Output: Urine 2350 1700 1150 Other: # Voids 1 1 - Labs CBC & Chem 7: 08/01/23 08:35 08/01/23 08:35 Labs: Abnormal Lab Results - Last 24 Hours (Table) 08/01/23 Range/Units 08:35 Potassium 3.4 L (3.5-5.1) mmol/L BUN 27 H (9-20) mg/dL Creatinine 1.38 H (0.66-1.25) mg/dL
[2023-08-01] MEDS ORDERED: RIVAROXABAN 15 MG TAB PO SCH (21:00)
[2023-08-02] MEDS: BENZONATATE 100 MG CAP PO PRN ×2 (06:21→11:09)
[2023-08-02] MEDS ORDERED: HEPARIN SODIUM,PORCINE 10,000 UNIT in SODIUM CHLORIDE 0.9% 1,000 ML IRRIGATION PRN (07:00)
[2023-08-02] MEDS ORDERED: HEPARIN SODIUM,PORCINE (1 ML) 2,500 UNIT in SODIUM CHLORIDE 0.9% 250 ML IRRIGATION PRN (07:00)
[2023-08-02] MEDS ORDERED: ALPRAZolam 0.5 MG TAB PO PRN (07:01)
[2023-08-02] MEDS ORDERED: NITROGLYCERIN SL TABS 0.4 MG TAB SUBLINGUAL PRN ×2 (07:01→14:13)
[2023-08-02] MEDS ORDERED: ALPRAZolam 0.25 MG TAB PO PRN (07:01)
[2023-08-02] MEDS: ASPIRIN 325 MG TAB PO STA (07:18)
[2023-08-02] MEDS: ATORVASTATIN 80 MG TAB PO STA (07:20)
[2023-08-02 11:35] LABS: African American GFR (CKD) 57 (>60 ml/min/1.73 sqM); Anion Gap 9 mmol/L; Blood Urea Nitrogen 30 mg/dL (9-20); Calcium 8.7 mg/dL (8.4-10.2); Carbon Dioxide 27 mmol/L (22-30); Chloride 102 mmol/L (98-107); Glucose 94 mg/dL (74-99); Non-African American GFR(CKD) 50 (>60 ml/min/1.73 sqM); Potassium 3.5 mmol/L (3.5-5.1); Sodium 138 mmol/L (137-145)
[2023-08-02] MEDS: IV FLUID CONTINUATION 1,000 ML IV ONE (13:19)
[2023-08-02] MEDS: LIDOCAINE 1% INJ 10MG/ML (30 ML VIAL-PF) SQ ONE (13:33)
[2023-08-02] MEDS: VERAPAMIL SYRINGE (5 MG/10 ML) INTRAARTER ONE (13:33)
[2023-08-02] MEDS: HEPARIN SODIUM 1,000 UN/ML (10ML VL) IVP ONE (13:33)
[2023-08-02] MEDS: MIDAZOLAM 2 MG/2 ML VIAL IVP ONE (13:33)
[2023-08-02] MEDS ORDERED: CLOPIDOGREL 75 MG TAB ONE (13:50)
[2023-08-02] MEDS: CLOPIDOGREL 75 MG TAB PO ONE (13:51)
[2023-08-02] MEDS ORDERED: niCARdipine 25 MG/10 ML VIAL ONE (14:08)
[2023-08-02] MEDS: IOPAMIDOL-370 100ML BTL INJ ONE (14:09)
[2023-08-02] MEDS ORDERED: ZOLPIDEM 5 MG TAB PO PRN (14:13)
[2023-08-02] MEDS ORDERED: ATROPINE SULFATE 0.1 MG/ML 10ML SYRINGE IV PRN (14:13)
[2023-08-02] MEDS ORDERED: RX INFO: IV CONTRAST WAS GIVEN 1 EACH MISC MISCELLANE PRN (14:13)
[2023-08-02] MEDS ORDERED: MAG HYDROX/AL HYDROX/SIMETH 30 ML CUP PO PRN (14:13)
[2023-08-02] MEDS: SODIUM CHLORIDE 0.9% 1,000 ML in EMPTY BAG 1 BAG IV SCH (14:34)
--- NOTE | 2023-08-02 14:53 | P.PN ---
Subjective Progress Note Date: 08/02/23 HISTORY OF PRESENT ILLNESS: This is a 83-year-old male with a past medical history significant for paro xysmal atrial fibrillation, hypertension, hyperlipidemia, valvular heart disease, and chronic kidney disease. Patient follows in the office with Dr. Stapleton. We have been asked to see the patient in consultation for congestive heart failure. Patient examined at the bedside. Patient presented to the hospital with a chief complaint of shortness of breath. He states about 2 days ago he began to have shortness of breath and wheezing at home. He also reports having a nonproductive cough. He states he has had lower extremity edema for the past 3 weeks which is new for him. He denies any history of congestive heart failure. The patient states he had COVID in March 2023 and states he feels like he has not fully recovered. It is noted that the patient had an abnormal stress test revealing at least a moderate area of ischemia inferiorly. When he saw Dr. Stapleton in the office last month he stated that he felt well at that time and declined to undergo heart catheterization. Heart catheterization was again discussed with the patient today who appears to be more willing to proceed with cardiac catheterization. DIAGNOSTICS: - EKG reveals A-fib with slow ventricular rate - Chest xray cardiomegaly. Small right pleural effusion with mild basilar atelectasis or infiltrate - Laboratory data: WBC 5.0. Hemoglobin 11.8. Platelet count 167. D-dimer 0.21. Sodium 141. Potassium 3.7. BUN 25. Creatinine 1.29. Troponin negative x 1. proBNP 5670. - Current home cardiac medications include Lipitor 20 mg at night, Multaq 400 mg twice a day, metoprolol tartrate 25 mg twice a day, Xarelto 20 mg at night, lisinopril 10 mg daily. - Most recent echocardiogram obtained in February 2023 revealing normal EF, moderate AR, moderate MR, moderate TR, moderate pulmonary hypertension 07/31 Patient is seen today in follow-up. He has been maintained on IV Lasix 40 mg every 12 hours. He has a negative fluid balance and weight is down 3-1/2 kg. Patient complains of a cough. Blood pressure 118/73, heart rate 61, pulse ox 97% on room air. Repeat blood work reveals normal CBC. Potassium is 3.4 and has been replaced. BUN 27 creatinine 1.38. Patient was tentatively scheduled for cardiac catheterization but due to increase in creatinine, will plan to start IV fluids, repeat blood work in the morning and rescheduled for tomorrow. Echocardiogram reveals EF of 55 to 60%. No significant abnormality. No pericardial effusion. 08/01 Patient is scheduled for cardiac catheterization with Dr. Stapleton. Repeat blood work reveals sodium 138, potassium 3.5, BUN 30 creatinine 1.34. Blood pressure 121/81, heart rate 65. PHYSICAL EXAM: VITAL SIGNS: Reviewed. GENERAL: Well-developed in no acute distress. HEENT: Head is normocephalic. Pupils are equal, round. Sclerae anicteric. Mucous membranes of the mouth are moist. Neck supple. No JVD or thyromegaly LUNGS: Respirations even and unlabored. Lungs diminished with expiratory wheezing HEART: Bradycardic. Irregular rate and rhythm. S1 and S2 heard. Systolic murmur noted ABDOMEN: Soft. Nondistended. Nontender. EXTREMITIES: Normal range of motion. No clubbing or cyanosis. Peripheral pulses intact. 2+ bilateral lower extremity edema NEUROLOGIC: Awake and alert. Oriented x 3. ASSESSMENT: Shortness of breath New onset heart failure, diastolic Recent abnormal Michelle scan revealing moderate inferior ischemia, February 2023, previously declining cardiac catheterization Paroxysmal atrial fibrillation with slow ventricular rate Hypertension Hyperlipidemia Valvular heart disease Chronic kidney disease PLAN: Continue current dose of metoprolol. Hold for heart rate less than 50. Continue with increased dose of lisinopril secondary to elevated blood pressure Daily weights, accurate intake and output, and monitoring of kidney function Continue to hold Xarelto tonight Patient is scheduled for cardiac catheterization with Dr. Stapleton Further recommendations pending patient course Nurse practitioner note has been reviewed by physician. Signing provider agrees with the documented findings, assessment, and plan of care documented by EMERGENCY SERVICE RESTORER as a scribe. Objective - Vital Signs Vital signs: Vital Signs Temp 98.1 F 08/02/23 07:45 Pulse 71 08/02/23 07:45 Resp 16 08/02/23 07:45 BP 139/70 08/02/23 07:45 Pulse Ox 94 L 08/02/23 07:45 FiO2 Intake & Output 08/01/23 08/02/23 08/02/23 18:59 06:59 18:59 Intake Total 476 Output Total 1150 550 Balance -674 -550 Weight 73.4 kg 74.3 kg Intake: Oral 476 Output: Urine 1150 550 Other: Voiding Method Toilet Toilet # Voids 1 - Labs CBC & Chem 7: 08/01/23 08:35 08/02/23 09:51
--- NOTE | 2023-08-02 15:57 | P.PN ---
Subjective Progress Note Date: 08/02/23 Patient is a 83-year-old male with A-fib on Xarelto, hypertension, hyperlipidemia, and CKD stage IIIa, who presented to the emergency room with complaints of shortness of breath and lower extremity edema. In the emergency department he underwent an extensive evaluation. On arrival his vitals were remarkable for heart rate of 58. Laboratory evaluation was remarkable for proBNP 5670, troponin less than 0.012, BUN 28, creatinine 1.28 (similar to baseline), and D-dimer 0.21. EKG in the emergency room revealed A-fib with SVR at 52 bpm with poor R wave progression and diffuse T wave flattening. Chest x-ray revealed cardiomegaly with a small right-sided pleural effusion with bibasilar atelectasi s. He was started on Lasix IV push and arrangements were made for admission. Cardiology was consulted noted that he had an abnormal stress test in the office in March and recommended cardiac catheterization. He is euvolemic by the morning of 07/31 but had slightly increasing creatinine and to prepare for cardiac cath he was started on gentle IV fluids. Patient seen and examined at bedside. Breathing is back to baseline. No chest pain. No other complaints but ready to get cardiac catheterization today. Vital signs reviewed General: Nontoxic, no distress, appears at stated age Cardiovascular: S1S2 reg, no murmur Lungs: CTA bilateral, no rhonchi, no rales, no accessory muscle use Abdominal: Soft, nontender to palpation, no guarding Ext: No gross muscle atrophy, no edema b/l lower extremities, no contractures Neuro: CN II-XI grossly intact, no focal neuro deficits Psych: Alert, oriented, appropriate affect Assessment/Plan: Acute exacerbation of diastolic congestive heart failure with preserved ejection fraction of 55 to 60% Hypertensive urgency, improved Dyslipidemia Atrial fibrillation anticoagulated with Xarelto-currently on hold for cardiac catheterization Chronic kidney disease stage IIIa - Cath today -Abnormal Lexiscan in February 2023 - off lasix -Continue with metoprolol 25 mg oral twice daily -patient with chronic dry cough d/c lisinopril and start losartan 12.5 mg PO daily. -Lipitor 40 mg daily - Cardiology note reviewed: Continue current dose of metoprolol, increase lisinopril -Hydralazine 25 mg PO BID Hypokalemia, resolved Imaging: None new Echocardiogram with ejection fraction 55 to 60% Data Review: Include basic metabolic profile which are remarkable for BUN 30 and creatinine 1.34. DVT prophylaxis: SCDs Anticipated discharge date: in AM Anticipated discharge place: home This dictation was prepared using [employer] voice recognition software. Though every attempt is made to correct errors during dictation some may still exist. Objective - Vital Signs Vital signs: Vital Signs Temp 97.9 F 08/02/23 15:42 Pulse 62 08/02/23 15:42 Resp 15 08/02/23 15:42 BP 148/67 08/02/23 15:42 Pulse Ox 98 08/02/23 15:42 FiO2 Intake & Output 08/01/23 08/02/23 08/02/23 18:59 06:59 18:59 Intake Total 476 300 Output Total 1150 550 300 Balance -674 -550 0 Weight 73.4 kg 74.3 kg Intake: IV 300 Oral 476 Output: Urine 1150 550 300 Other: Voiding Method Toilet Toilet # Voids 1 - Labs CBC & Chem 7: 08/01/23 08:35 08/02/23 09:51 Labs: Abnormal Lab Results - Last 24 Hours (Table) 08/02/23 Range/Units 09:51 BUN 30 H (9-20) mg/dL Creatinine 1.34 H (0.66-1.25) mg/dL
[2023-08-02] MEDS ORDERED: LOSARTAN 25 MG TAB PO SCH (21:00)
--- NOTE | 2023-08-02 21:22 | P.PCN ---
Date of Procedure: 08/02/23 Operative Findings: Cardiac catheterization and percutaneous coronary intervention Performing physician ERIK BARDALES MD Procedure performed Selective right and left coronary angiogram Successful PCI of the mid LAD using 3.5 x 23 mm Xience JUAREZ Adjunctive use of Doppler wire and intravascular ultrasound Ultrasound guided access of the right radial artery Indication Chest discomfort and shortness of breath concerning for angina Approach Right radial artery Complications None Level of sedation Moderate with sedation length of 40 minutes Procedure description After obtaining informed consent the patient was brought to the cardiac cathode ray tube salvage processor. The right radial artery was cannulated using micropuncture technique under ultrasound guidance and the micropuncture wire passed easily then I placed a 6 Maori 11 cm sheath at the right radial artery and subsequently patient was given 2 mg of verapamil intra-arterial and 3000 his of heparin intravenous with continuous ACT monitoring and additional heparin was given throughout the procedure. Selective right and left coronary angiogram performed using JR4 and JL4 3.5 catheters. After that we decided to do Doppler wire measurement of the left anterior descending artery. After zeroing the Doppler wire and equalizing between the Doppler wire and guiding catheter with CrossSail 3.5 guiding catheter left main was engaged and the LAD was wired subsequently the left main was disengaged with the wire in spot. We did an iFR and that came in to be isc hemic at 0.88 and 0.87. I did pulled back across the lesion and the number normalized. I rewired the LAD again to make sure that the lesion is flow- limiting and the number dropped down again below the ischemic threshold. At that point I decided to intervene on the LAD. Intravascular ultrasound was performed and showed a diameter around 3.5 mm. Predilatation was performed using 3.5 mm noncompliant balloon and subsequently I did deploy 3.5 x 23 mm stent with the stent was positioned under fluoroscopy guidance and deployed under fluoroscopy guidance. Intravascular ultrasound was performed and showed that the stent was not well opposed. I postdilated initially using 3.75 mm balloon and subsequently using 4 mm noncompliant balloon with final angiogram showing excellent angiographic results and the procedure was completed was no complication Selective coronary angiogram The RCA is a large caliber vessel and dominant vessel with mild disease only. The left main is angiographically normal. The LCx is a large caliber vessel nondominant vessel with mild disease only The LAD is a large caliber vessel with intermediate calcified lesion in the midportion documented to be flow limiting by Doppler wire Conclusion Severe disease involving the mid LAD. I performed successful PCI as described above Postprocedure management Dual antiplatelet therapy using aspirin and Plavix for at least 6 months Follow-up with the patient
[2023-08-03] MEDS: CLOPIDOGREL 75 MG TAB PO SCH (09:07)
[2023-08-03] MEDS: LOSARTAN 25 MG TAB PO SCH (09:08)
[2023-08-03 09:39] LABS: African American GFR (CKD) 67 (>60 ml/min/1.73 sqM); Anion Gap 10 mmol/L; Blood Urea Nitrogen 24 mg/dL (9-20); Calcium 8.6 mg/dL (8.4-10.2); Carbon Dioxide 23 mmol/L (22-30); Chloride 104 mmol/L (98-107); Glucose 189 mg/dL (74-99); Non-African American GFR(CKD) 58 (>60 ml/min/1.73 sqM); Potassium 3.2 mmol/L (3.5-5.1); Sodium 137 mmol/L (137-145)
[2023-08-03] MEDS: ASPIRIN 81 MG PO SCH (11:10)
--- NOTE | 2023-08-03 11:24 | P.DS ---
Providers Date of admission: 07/30/23 23:27 Expected date of discharge: 08/03/23 Attending physician: Tim Lewis MD Consults: 07/31/23 01:00 Consult Physician Urgent Consulting Provider: Viet Stapleton Consult Reason/Comments: CHF Do you want consulting provider notified?: Yes 08/02/23 14:13 Consult Physician Routine Consulting Provider: [facility] Consult Reason/Comments: Post Interventional Patient Do you want consulting provider notified?: Already Contacted Primary care physician: Jl Perez Hospital Course: Discharge Diagnosis: Acute exacerbation of diastolic congestive heart failure with preserved ejection fraction of 55 to 60% CAD, severe LAD s/p sucessful PCI Hypertensive urgency, improved Dyslipidemia Atrial fibrillation anticoagulated with Xarelto-currently on hold for cardiac catheterization Chronic kidney disease stage IIIa Hypokalemia Hospital Course: Patient is a 83-year-old male with A-fib on Xarelto, hypertension, hyperlipidemia, and CKD stage IIIa, who presented to the emergency room with complaints of shortness of breath and lower extremity edema. In the emergency department he underwent an extensive evaluation. On arrival his vitals were remarkable for heart rate of 58. Laboratory evaluation was remarkable for proBNP 5670, troponin less than 0.012, BUN 28, creatinine 1.28 (similar to baseline), and D-dimer 0.21. EKG in the emergency room revealed A-fib with SVR at 52 bpm with poor R wave progression and diffuse T wave flattening. Chest x-ray revealed cardiomegaly with a small right-sided pleural effusion with bibasilar atelectasis. He was started on Lasix IV push and arrangements were made for admission. Cardiology was consulted noted that he had an abnormal stress test in the office in March and recommended cardiac catheterization. He is euvolemic by the morning of 07/31 but had slightly increasing creatinine and to prepare for cardiac cath he was started on gentle IV fluids. On 08/02/23 he underwent cardiac catheterization which showed severe disease in the LAD and patient underwent successful PCI. He tolerated the procedure well without any immediate postoperative complications. The morning after cardiac catheterization his renal function remained stable. He was seen by cardiology and was cleared for discharge. He also had a chronic cough identified during his hospital stay and that he was transition from JASON inhibitor to ARB. Follow-up: Dr. Perez in 2-3 days, Dr. Skaf in 1 week. New medications include Plavix 75 mg daily, hydralazine 25 mg twice daily, Patient seen and examined at bedside. No chest pain or shortness of breath. No nausea. Vital signs reviewed and stable. General: Nontoxic, no distress, appears at stated age Cardiovascular: S1S2 reg, no murmur, positive posterior tibial pulse bilateral, Lungs: CTA bilateral, no rhonchi, no rales, no accessory muscle use Abdominal: Soft, nontender to palpation, no guarding, no appreciable organomegaly Ext: No gross muscle atrophy, no edema b/l lower extremities, no contractures Neuro: CN II-XI grossly intact, no focal neuro deficits Psych: Alert, oriented, appropriate affect A total of 35 minutes of time were spent preparing this complex discharge summary. Patient was discharged on 08/03/23. This dictation was prepared using [id number] voice recognition software. Th ough every attempt is made to correct errors during dictation some may still exist. Plan - Discharge Summary Discharge Rx Participant: No New Discharge Prescriptions: New Nitroglycerin Sl Tabs [Nitrostat] 0.4 mg SUBLINGUAL Q5M PRN #25 tab PRN Reason: Chest Pain hydrALAZINE HCL [Apresoline] 25 mg PO BID #180 tab Losartan [Cozaar] 12.5 mg PO DAILY #90 tab Clopidogrel [Plavix] 75 mg PO DAILY #90 tab Continue Atorvastatin [Lipitor] 20 mg PO HS Dronedarone [Multaq] 400 mg PO AC-BID #60 tab Metoprolol Tartrate [Lopressor] 25 mg PO BID #60 tab calcitrioL 0.5 mcg PO TOLBERT Rivaroxaban [Xarelto] 20 mg PO HS allopurinoL 50 mg PO HS Vitamin D3/Vitamin K2 (Mk4) [Vitamin K2 Plus D3 Tablet] 1 tab PO DAILY Tamsulosin HCl [Flomax] 0.4 mg PO HS Discontinued lisinopriL [Zestril] 10 mg PO DAILY Discharge Medication List Atorvastatin [Lipitor] 20 mg PO HS 03/08/16 [History] Dronedarone [Multaq] 400 mg PO AC-BID #60 tab 03/10/16 [Rx] Metoprolol Tartrate [Lopressor] 25 mg PO BID #60 tab 03/10/16 [Rx] Rivaroxaban [Xarelto] 20 mg PO HS 03/28/23 [History] Vitamin D3/Vitamin K2 (Mk4) [Vitamin K2 Plus D3 Tablet] 1 tab PO DAILY 03/28/23 [History] allopurinoL 50 mg PO HS 03/28/23 [History] calcitrioL 0.5 mcg PO TOLBERT 03/28/23 [History] Tamsulosin HCl [Flomax] 0.4 mg PO HS 07/31/23 [History] Clopidogrel [Plavix] 75 mg PO DAILY #90 tab 08/03/23 [Rx] Losartan [Cozaar] 12.5 mg PO DAILY #90 tab 08/03/23 [Rx] Nitroglycerin Sl Tabs [Nitrostat] 0.4 mg SUBLINGUAL Q5M PRN #25 tab 08/03/23 [Rx] hydrALAZINE HCL [Apresoline] 25 mg PO BID #180 tab 08/03/23 [Rx] Follow up Appointment(s)/Referral(s): Viet Stapleton MD [STAFF PHYSICIAN] - 1 Week Jl Perez MD [Primary Care Provider] - 1-2 days Activity/Diet/Wound Care/Special Instructions: Activity: As tolerated Diet: Heart Healthy Special Instructions: For your chronic dry cough we have adjusted one of your medications to help. If this continues beyond another week then you should follow with Dr. Perez for evaluation of possible other causes including chronic sinusitis and acid reflux Discharge Disposition: HOME SELF-CARE
[2023-08-03] MEDS: POTASSIUM CHLORIDE ER 20 MEQ TAB.ER PO STA (11:35)
[2023-08-03 11:39] VITALS: BP 126/57; PULSE 60; RESP 16; TEMP 98.2
--- NOTE | 2023-08-03 14:50 | P.PN ---
Subjective Progress Note Date: 08/03/23 HISTORY OF PRESENT ILLNESS: This is a 83-year-old male with a past medical history significant for paro xysmal atrial fibrillation, hypertension, hyperlipidemia, valvular heart disease, and chronic kidney disease. Patient follows in the office with Dr. Stapleton. We have been asked to see the patient in consultation for congestive heart failure. Patient examined at the bedside. Patient presented to the hospital with a chief complaint of shortness of breath. He states about 2 days ago he began to have shortness of breath and wheezing at home. He also reports having a nonproductive cough. He states he has had lower extremity edema for the past 3 weeks which is new for him. He denies any history of congestive heart failure. The patient states he had COVID in March 2023 and states he feels like he has not fully recovered. It is noted that the patient had an abnormal stress test revealing at least a moderate area of ischemia inferiorly. When he saw Dr. Stapleton in the office last month he stated that he felt well at that time and declined to undergo heart catheterization. Heart catheterization was again discussed with the patient today who appears to be more willing to proceed with cardiac catheterization. DIAGNOSTICS: - EKG reveals A-fib with slow ventricular rate - Chest xray cardiomegaly. Small right pleural effusion with mild basilar atelectasis or infiltrate - Laboratory data: WBC 5.0. Hemoglobin 11.8. Platelet count 167. D-dimer 0.21. Sodium 141. Potassium 3.7. BUN 25. Creatinine 1.29. Troponin negative x 1. proBNP 5670. - Current home cardiac medications include Lipitor 20 mg at night, Multaq 400 mg twice a day, metoprolol tartrate 25 mg twice a day, Xarelto 20 mg at night, lisinopril 10 mg daily. - Most recent echocardiogram obtained in February 2023 revealing normal EF, moderate AR, moderate MR, moderate TR, moderate pulmonary hypertension 07/31 Patient is seen today in follow-up. He has been maintained on IV Lasix 40 mg every 12 hours. He has a negative fluid balance and weight is down 3-1/2 kg. Patient complains of a cough. Blood pressure 118/73, heart rate 61, pulse ox 97% on room air. Repeat blood work reveals normal CBC. Potassium is 3.4 and has been replaced. BUN 27 creatinine 1.38. Patient was tentatively scheduled for cardiac catheterization but due to increase in creatinine, will plan to start IV fluids, repeat blood work in the morning and rescheduled for tomorrow. Echocardiogram reveals EF of 55 to 60%. No significant abnormality. No pericardial effusion. 08/01 Patient is scheduled for cardiac catheterization with Dr. Stapleton. Repeat blood work reveals sodium 138, potassium 3.5, BUN 30 creatinine 1.34. Blood pressure 121/81, heart rate 65. 4/10 Yesterday, patient underwent cardiac catheterization with Dr. Stapleton which r evealed severe disease involving the mid LAD status post PCI. RCA and left circumflex with mild disease only. Left main normal. Patient denies having any chest pain no shortness of breath lightheadedness or dizziness. Patient is to continue on aspirin, Plavix, statin and beta-amisha. Repeat blood pressure 126/57, heart rate 60, pulse ox 97% on room air. Repeat lab work reveals BUN 24 creatinine 1.18. PHYSICAL EXAM: VITAL SIGNS: Reviewed. GENERAL: Well-developed in no acute distress. HEENT: Head is normocephalic. Pupils are equal, round. Sclerae anicteric. Mucous membranes of the mouth are moist. Neck supple. No JVD or thyromegaly LUNGS: Respirations even and unlabored. Lungs diminished with expiratory wheezing HEART: Bradycardic. Irregular rate and rhythm. S1 and S2 heard. Systolic murmur noted ABDOMEN: Soft. Nondistended. Nontender. EXTREMITIES: Normal range of motion. No clubbing or cyanosis. Peripheral pulses intact. 2+ bilateral lower extremity edema NEUROLOGIC: Awake and alert. Oriented x 3. ASSESSMENT: Shortness of breath New onset heart failure, diastolic Recent abnormal Michelle scan revealing moderate inferior ischemia, February 2023, previously declining cardiac catheterization Coronary artery disease s/p Paroxysmal atrial fibrillation with slow ventricular rate Hypertension Hyperlipidemia Valvular heart disease Chronic kidney disease PLAN: Continue current cardiac medications including atorvastatin, Xarelto, losartan, Lopressor Nitrostat and Plavix Patient is cleared for discharge from Cardiology and may follow up with Dr. Stapleton in one week. Nurse practitioner note has been reviewed by physician. Signing provider agrees with the documented findings, assessment, and plan of care documented by LOCOMOTIVE PIPE FITTER as a scribe. Objective - Vital Signs Vital signs: Vital Signs Temp 98.4 F 08/03/23 08:00 Pulse 73 08/03/23 08:00 Resp 17 08/03/23 08:00 BP 114/64 08/03/23 08:00 Pulse Ox 97 08/03/23 08:00 FiO2 Intake & Output 08/02/23 08/03/23 08/03/23 18:59 06:59 18:59 Intake Total 418 118 Output Total 300 Balance 118 118 Weight 74.6 kg Intake: IV 300 Oral 118 118 Output: Urine 300 Other: Voiding Method Toilet Toilet # Bowel Movements 1 - Labs CBC & Chem 7: 08/01/23 08:35 08/03/23 08:37 Labs: Abnormal Lab Results - Last 24 Hours (Table) 08/02/23 08/03/23 Range/Units 09:51 08:37 Potassium 3.2 L (3.5-5.1) mmol/L BUN 30 H 24 H (9-20) mg/dL Creatinine 1.34 H (0.66-1.25) mg/dL Glucose 189 H (74-99) mg/dL
== END 2023-08-03 13:57 | disposition home or self-care (01) | DRG 321 ==
LOC: EC 21:13 → 4SSUR 23:27 → 3SCARD 23:51
PROVIDERS: ADMIT Internal Medicine; ATTEND Internal Medicine
PROC: 4A023N7 Measurement of Cardiac Sampling and Pressure, Left Heart, Percutaneous Approach (ICD-10-PCS; principal; 2023-08-02 09:30)
PROC: B2111ZZ Fluoroscopy of Multiple Coronary Arteries using Low Osmolar Contrast (ICD-10-PCS; principal; 2023-08-02 09:30)
PROC: B240ZZ3 Ultrasonography of Single Coronary Artery, Intravascular (ICD-10-PCS; principal; 2023-08-02 09:30)
PROC: 027034Z Dilation of Coronary Artery, One Artery with Drug-eluting Intraluminal Device, Percutaneous Approach (ICD-10-PCS; principal; 2023-08-02 09:30)
PROC: 4A033BC Measurement of Arterial Pressure, Coronary, Percutaneous Approach (ICD-10-PCS; principal; 2023-08-02 09:30)
DX: I13.0 Hypertensive heart and chronic kidney disease with heart failure and stage 1 through stage 4 chronic kidney disease, or unspecified chronic kidney disease (principal); I50.33 Acute on chronic diastolic (congestive) heart failure; J98.11 Atelectasis; N18.31 Chronic kidney disease, stage 3a; I25.10 Atherosclerotic heart disease of native coronary artery without angina pectoris; I16.0 Hypertensive urgency; I27.20 Pulmonary hypertension, unspecified; I08.3 Combined rheumatic disorders of mitral, aortic and tricuspid valves; E78.5 Hyperlipidemia, unspecified; R00.1 Bradycardia, unspecified; I48.0 Paroxysmal atrial fibrillation; E87.6 Hypokalemia; K40.90 Unilateral inguinal hernia, without obstruction or gangrene, not specified as recurrent; Z66 Do not resuscitate; Z71.3 Dietary counseling and surveillance; Z86.16 Personal history of COVID-19; Z79.899 Other long term (current) drug therapy; Z79.01 Long term (current) use of anticoagulants
CPT/HCPCS: 36415; 71046; 76937; 80048; 80053; 83605; 83735; 83880; 84484; 85025; 85027; 85379; 85610; 85730; 87636; 92978; 93005; 93306; 93454; 93799; 94760; 96374; 99285

== ENCOUNTER → 2023-08-26 | Outpatient (CLI) | payer MEDICARE, BC ==
--- NOTE | 2023-08-26 13:39 | CT ---
EXAMINATION TYPE: CT chest wo con DATE OF EXAM: 08/26/2023 COMPARISON: Chest x-ray HISTORY: INTERSTITIAL PULMONARY DISEASE, HIGH RESOLUTION CT DLP: 313 mGycm, Automated exposure control for dose reduction was used. CONTRAST: None TECHNIQUE: Axial images were obtained at 1 mm thick sections at 10 mm intervals. This will limit po rtions of the examination which may not be visualized within the [id number]. Images were obtained in the prone and supine views. FINDINGS: Portion of the thyroid visualized is normal. No suspicious lung nodules or focal infiltrat es are present. There are small bilateral pleural effusions. Coronary artery calcifications noted. No enlarged mediastinal or hilar adenopathy is evident. The ascending aorta diameter at the level o f the main pulmonary artery is 4.1 cm. The main pulmonary artery diameter at the bifurcation is 3.[address] sections are obtained through the upper abdomen. Abdomen is essentially unremarkable. IMPRESSION: 1. Small bilateral free-flowing pleural effusions
== END | disposition home or self-care (01) ==
LOC: RADCTMAIN 09:40
PROVIDERS: ATTEND Internal Medicine
DX: J90 Pleural effusion, not elsewhere classified (principal); J84.9 Interstitial pulmonary disease, unspecified
CPT/HCPCS: 71250